=== PATIENT | female | born 1955 | race Caucasian/White ===

== ENCOUNTER 2020-04-05 06:52 | Inpatient (IN) ==
--- NOTE | 2020-04-05 07:16 | Emergency Department Note ---
Weakness HPI General Chief complaint: Weakness Stated complaint: weakness Time Seen by Provider: 04/05/20 07:07 Source: patient, family and RN notes reviewed Mode of arrival: ambulatory Limitations: no limitations History of Present Illness HPI Narrative: Narrative: This patient has a history of end-stage liver cancer with a ascites it has been recurrent. She had a paracentesis last week and felt little better after that. However she is reaccumulated and its impairing breathing slightly. She has some abdominal discomfort. 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 She has had generalized weakness today. She does take lactulose. Complaint: generalized weakness Onset (ago): day(s) Duration: constant Location: generalized Migration: none Severity: moderate Context: recent illness and history of similar Related Data Home Medications Medication Instructions Recorded Confirmed cholecalciferol (vitamin D3) 1,000 unit PO DAILY 11/20/17 03/22/20 docusate sodium 100 mg capsule 100 mg PO QDAY 01/26/20 03/29/20 rifaximin 550 mg tablet 550 mg PO BID 01/26/20 04/05/20 lactulose 10 gram/15 mL oral 45 ml PO TID ml 03/22/20 03/29/20 solution Previous Rx's Medication Instructions Recorded ketoconazole 2 % topical cream 1 applic TOPICAL BID #60 g 04/15/19 albuterol sulfate 90 mcg/actuation 2 puff INHALATION Q4-6HP PRN #6.7 g 07/29/19 aerosol inhaler bumetanide 2 mg tablet 2 mg PO BID #180 tab 12/23/19 tramadol 50 mg tablet 50 mg PO QID PRN #120 tab 12/29/19 omeprazole 20 mg capsule,delayed 20 mg PO QDAY #90 cap 01/08/20 release nystatin 100,000 unit/mL oral 5 ml BUCCAL BID #500 ml 01/22/20 suspension metolazone 2.5 mg tablet 2.5 mg PO . and Sunday #20 tab 02/10/20 cyclobenzaprine 10 mg tablet 20 mg PO HS #60 tab 03/01/20 spironolactone 100 mg tablet 100 mg PO BID #60 tab 03/31/20 Allergies Allergy/AdvReac Type Severity Reaction Status Date / Time codeine Allergy Unknown Verified 04/05/20 06:58 Review of Systems ROS ROS Narrative: Narrative: All systems ED: reviewed and negative except as stated. 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) Personal history of malignant hepatoma (Chronic) Disorder of fluid or electrolyte (Chronic) Electrolyte and fluid disorder (Chronic) Acute prerenal azotemia (Acute) Hepatic encephalopathy (Chronic) Lower extremity edema (Chronic) Hepatocellular carcinoma (Chronic) Family history of colon cancer in father (Chronic) RLS (restless legs syndrome) (Chronic) Wellness examination (Chronic) Neuropathy (Chronic) Hay fever (Chronic) History of left hip replacement (Chronic ~02/23/15) History of blood transfusion (Chronic) History of tobacco use (Chronic) GERD (gastroesophageal reflux disease) (Chronic) Hepatitis C, chronic (Chronic) Lymphedema (Chronic) 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) Leg length discrepancy (Chronic) Paresthesia of bilateral legs (Chronic) Unequal limb length (acquired), left femur (Chronic) Mass of left foot (Chronic) Seborrheic keratosis (Chronic) Hip pain (Chronic) Osteoarthritis (Chronic) Tricuspid valve regurgitation (Chronic) Cirrhosis (Chronic) Menopausal syndrome (Chronic) Asthma (Chronic) Medical History (Updated 04/05/20 @ 09:03 by Rafa Rogel MD) Abdominal pain (Resolved) With elevated liver enzymes Abnormal screening mammogram (Resolved) 01/2015, resultant ultrasound revealed benign findings Anemia (Resolved) Asthma (Chronic) Bilateral lower extremity edema (Resolved) Burning pain (Resolved) Calf cramp (Resolved) nocturnal Callus of foot (Resolved) Feet, bilateral Cellulitis (Resolved) Cirrhosis (Chronic) Congestive heart failure (Resolved) Disorder of fluid or electrolyte (Chronic) Doing well Cirrhotic physiology Dual diuretics and cirrhosis makes hyponatremia a possibility Use aldactone to keep K ~4.0 mEq/L to blunt NH3 production Dull pain (Resolved) Edema (Resolved) Electrolyte and fluid disorder (Chronic) Cirrhotic physiology and diuretics Fracture of left hip (Resolved) 01/2015 Gastric ulcer (Resolved) GERD (gastroesophageal reflux disease) (Chronic) Groin pain (Resolved) Hay fever (Chronic) Heartburn (Resolved) 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 Hepatocellular carcinoma (Chronic) Hip pain (Chronic) History of blood transfusion (Chronic) 04/2015 History of drug abuse in remission (Resolved) History of echocardiogram (Resolved 04/14/15) 04/2015 History of hepatitis C (Resolved) History of hepatitis C (Resolved) History of tobacco use (Chronic) Leg length discrepancy (Chronic) Lower extremity edema (Resolved) Lower extremity edema (Chronic) Lymphedema (Chronic) Medicare annual wellness visit, initial (Acute) Menopausal syndrome (Chronic) 10/24/2012 Muscle cramps (Resolved) Muscle weakness (Resolved) Numbness (Resolved) Osteopenia (Chronic) DEXA scan 11/2015 Paresthesia of bilateral legs (Chronic) Peripheral edema (Resolved) Personal history of malignant hepatoma (Chronic) Appears well treated by IR catheter directed ablation x 2 Postmenopausal bleeding (Resolved) 10/24/2012; on Combipatch Pulmonary hypertension (Resolved) Rhinitis, allergic (Resolved) RLS (restless legs syndrome) (Chronic) Seborrheic keratosis (Chronic) Skin fissure (Resolved) Tricuspid valve regurgitation (Chronic) Unequal limb length (acquired), left femur (Chronic) Upper GI bleeding (Resolved) bleeding was from friable stricture at GE jxn. 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 No family history of endocrine disease No problems noted. No family history of neoplasm No problems noted. Social History Smoking Status: Former smoker Alcohol Intake Frequency: former alcohol drinker Substance Use: does not use and former substance user Exam Narrative Narrative: Narrative: General Limitations: no limitations Head Head: Present atraumatic and normocephalic Eye Eye: Present normal appearance, EOMI and scleral icterus; Absent conjunctival injection ENT ENT: Present normal exam, normal oropharynx and mucous membranes moist Neck Neck: Present normal inspection and full ROM Chest Chest: Present normal inspection and symmetric chest wall rise Respiratory Respiratory: Present normal lung sounds bilaterally Cardiovascular Cardiovascular: Present regular rate, normal rhythm and normal heart sounds Adbominal Abdominal: Present soft, distention and tenderness; Absent guarding, rebound and rigidity Expanded Abdominal Abdominal Tenderness: Present diffuse and mild Extremities Extremities: Present normal inspection and full ROM; Absent pedal edema and pretibial edema Neurological Neurological: Present alert Psychiatric Psychiatric: Present normal affect Skin Skin: Present warm (WNL) and dry; Absent diaphoresis Course Vital Signs Vital signs: Vital Signs Temperature 98.4 F 04/05/20 06:52 Pulse Rate 111 H 04/05/20 06:52 Respiratory Rate 18 04/05/20 06:52 Pulse Oximetry (%) 96 04/05/20 06:52 Temperature 98.4 F 04/05/20 07:13 Pulse Rate 93 H 04/05/20 08:31 Respiratory Rate 11 L 04/05/20 08:31 Blood Pressure 123/69 04/05/20 08:31 Pulse Oximetry (%) 97 04/05/20 08:31 [facility] MDM Narrative Medical decision making narrative: Narrative: Despite the marked rise in the ammonia level her mental status is about the same as a week ago. She has not had a bowel movement in several days and the hospitalist recommended giving her some extra doses of lactulose today. We will give her 30 g now. Still waiting on some lab work and body fluid analysis to come back so final disposition per Dr. Rosario. Lab Data Lab results narrative: Lab work is is about the same as a week ago except that the ammonia has gone from 85 to 249. Result diagrams: 04/05/20 07:38 04/05/20 07:38 Labs: Lab Results 04/05/20 04/05/20 04/05/20 Range/Units 07:38 07:38 07:38 WBC 9.7 (4.5-11.0) K/mcL RBC 3.99 L (4.00-5.20) M/mcL Hgb 11.8 L (12.0-15.0) g/dL Hct 35.8 L (36.0-48.0) % MCV 89.7 (80.0-100.0) fL MCH 29.6 (26.0-34.0) pg MCHC 33.0 (31.0-36.0) g/dL RDW 15.9 H (11.5-14.5) % Plt Count 85 L (140-440) K/mcL MPV 12.6 H (7.4-10.4) fL Neut % (Auto) 79.8 H (38.0-78.0) % Lymph % (Auto) 5.7 L (15.0-49.0) % Tift % (Auto) 12.3 H (1.0-12.0) % Eos % (Auto) 1.7 (0.0-7.0) % Baso % (Auto) 0.5 (0.0-2.0) % Lymph # (Auto) 0.55 L (1.50-4.80) K/mcL Tift # (Auto) 1.19 H (0.10-0.90) K/mcL Eos # (Auto) 0.16 (0.00-0.70) K/mcL Baso # (Auto) 0.05 (0.00-0.20) K/mcL Absolute Neutrophils 7.73 (1.80-8.00) K/mcL PT 17.2 H (11.9-14.5) sec INR 1.4 H (0.9-1.1) Sodium 131 L (133-145) mmol/L Potassium 4.3 (3.3-5.1) mmol/L Chloride 92 L (96-108) mmol/L Carbon Dioxide 28 (22-30) mmol/L Anion Gap 11.0 (8.0-16.0) BUN 30 H (8-23) mg/dL Creatinine 1.8 H (0.6-1.1) mg/dL GFR Calculation 29 Glucose 78 (70-105) mg/dL Calcium 9.5 (8.6-10.4) mg/dL Total Bilirubin 3.7 H (0.1-1.0) mg/dL AST 92 H (<32) U/L ALT 43 H (<40) U/L Alkaline Phosphatase 345 H (39-117) U/L Ammonia (11-51) umol/L Total Protein 6.4 (5.9-8.4) gm/dL Albumin 3.1 L (3.2-5.2) gm/dL Globulin 3.3 (2.2-3.7) gm/dL Albumin/Globulin Ratio 0.9 L (1.0-2.3) 04/05/20 Range/Units 07:38 WBC (4.5-11.0) K/mcL RBC (4.00-5.20) M/mcL Hgb (12.0-15.0) g/dL Hct (36.0-48.0) % MCV (80.0-100.0) fL MCH (26.0-34.0) pg MCHC (31.0-36.0) g/dL RDW (11.5-14.5) % Plt Count (140-440) K/mcL MPV (7.4-10.4) fL Neut % (Auto) (38.0-78.0) % Lymph % (Auto) (15.0-49.0) % Tift % (Auto) (1.0-12.0) % Eos % (Auto) (0.0-7.0) % Baso % (Auto) (0.0-2.0) % Lymph # (Auto) (1.50-4.80) K/mcL Tift # (Auto) (0.10-0.90) K/mcL Eos # (Auto) (0.00-0.70) K/mcL Baso # (Auto) (0.00-0.20) K/mcL Absolute Neutrophils (1.80-8.00) K/mcL PT (11.9-14.5) sec INR (0.9-1.1) Sodium (133-145) mmol/L Potassium (3.3-5.1) mmol/L Chloride (96-108) mmol/L Carbon Dioxide (22-30) mmol/L Anion Gap (8.0-16.0) BUN (8-23) mg/dL Creatinine (0.6-1.1) mg/dL GFR Calculation Glucose (70-105) mg/dL Calcium (8.6-10.4) mg/dL Total Bilirubin (0.1-1.0) mg/dL AST (<32) U/L ALT (<40) U/L Alkaline Phosphatase (39-117) U/L Ammonia 249 H (11-51) umol/L Total Protein (5.9-8.4) gm/dL Albumin (3.2-5.2) gm/dL Globulin (2.2-3.7) gm/dL Albumin/Globulin Ratio (1.0-2.3) Radiology Data Radiology results reviewed: Yes I reviewed the patient's radiology results. Radiology results narrative: 4 L of clear fluid were removed by paracentesis. Discharge Plan Patient/Caregiver Discharge Instructions Pt seen by SERVICER/PA only: No Clinical Impression: Hepatic cirrhosis due to chronic hepatitis C infection, Personal history of malignant hepatoma Patient Disposition: Still a Patient Follow up with: Wendy Reid DO [Primary Care Provider] - Prescriptions: No Action ketoconazole 2 % cream 1 applic TOPICAL BID Qty: 60 RF: 0 albuterol sulfate 90 mcg/actuation HFA aerosol inhaler 2 puff INHALATION Q4-6HP PRN (Reason: Shortness Of Breath) Qty: 6.7 RF: 2 bumetanide 2 mg tablet 2 mg PO BID Qty: 180 RF: 3 tramadol 50 mg tablet 50 mg PO QID PRN (Reason: pain) Qty: 120 RF: 3 omeprazole 20 mg capsule,delayed release(DR/EC) 20 mg PO QDAY Qty: 90 RF: 0 nystatin 100,000 unit/mL suspension 5 ml BUCCAL BID Qty: 500 RF: 2 metolazone 2.5 mg tablet 2.5 mg PO . and Sunday Qty: 20 RF: 0 cyclobenzaprine 10 mg tablet 20 mg PO HS Qty: 60 RF: 1 spironolactone 100 mg tablet 100 mg PO BID Qty: 60 RF: 11 lactulose 10 gram/15 mL solution 45 ml PO TID RF: 0 Xifaxan 550 mg tablet 550 mg PO BID RF: 0 docusate sodium 100 mg capsule 100 mg PO QDAY RF: 0 cholecalciferol (vitamin D3) 1,000 UNIT capsule 1,000 unit PO DAILY RF: 0
[2020-04-05] MEDS ORDERED: ONDANSETRON 4 MG/2 ML VIAL IV ONE (07:56)
[2020-04-05 08:17] LABS: Basophils # (Auto) 0.05 K/mcL (0.00-0.20); Basophils % (Auto) 0.5 % (0.0-2.0); Eosinophils # (Auto) 0.16 K/mcL (0.00-0.70); Eosinophils % (Auto) 1.7 % (0.0-7.0); Hematocrit 35.8 % (36.0-48.0); Hemoglobin 11.8 g/dL (12.0-15.0); Lymphocytes # (Auto) 0.55 K/mcL (1.50-4.80); Lymphocytes % (Auto) 5.7 % (15.0-49.0); Mean Cell Volume 89.7 fL (80.0-100.0); Mean Platelet Volume 12.6 fL (7.4-10.4); Monocytes # (Auto) 1.19 K/mcL (0.10-0.90); Monocytes % (Auto) 12.3 % (1.0-12.0); Neutrophils % (Auto) 79.8 % (38.0-78.0); Platelet Count 85 K/mcL (140-440); RBC 3.99 M/mcL (4.00-5.20); Red Cell Distribution Width 15.9 % (11.5-14.5); WBC 9.7 K/mcL (4.5-11.0)
--- NOTE | 2020-04-05 08:30 | Ultrasound Report ---
INDICATION: ascities TECHNIQUE: Informed consent was obtained. Discussed procedure as well as potential risks and complications including risk of infection and bleeding. Ascitic fluid was localized in the right lower quadrant. Routine ChloraPrep skin cleansing. 1% lidocaine injected subcutaneously and deep. An 8 Mauritian safety centesis set was utilized. 4.0 L clear yellow fluid removed. 50 mL was removed and sent for culture and sensitivity. COMPARISON: Previous examination dated 03/29/2020 FINDINGS: 4.0 L clear yellow fluid removed IMPRESSION: Ultrasound-guided paracentesis as above Interpreted and Authenticated by: Danny Omer 04/05/20
[2020-04-05 08:40] LABS: ALT/SGPT 43 U/L (<40); AST/SGOT 92 U/L (<32); Albumin 3.1 gm/dL (3.2-5.2); Albumin/Globulin Ratio 0.9 (1.0-2.3); Alkaline Phosphatase 345 U/L (39-117); Bilirubin,Total 3.7 mg/dL (0.1-1.0); Blood Urea Nitrogen 30 mg/dL (8-23); Calcium 9.5 mg/dL (8.6-10.4); Carbon Dioxide 28 mmol/L (22-30); Chloride 92 mmol/L (96-108); Globulin 3.3 gm/dL (2.2-3.7); Glomerular Filtration Rate 29; Glucose 78 mg/dL (70-105)
[2020-04-05 08:48] LABS: INR 1.4 (0.9-1.1); Prothrombin Time 17.2 sec (11.9-14.5)
[2020-04-05] MEDS ORDERED: LACTULOSE 20 GM/30 ML ORAL.SOL PR ONE (08:51)
[2020-04-05] MEDS ORDERED: ALBUMIN HUMAN 25 GM/100 ML BAG IV ONE ×2 (10:07→10:08)
--- NOTE | 2020-04-05 10:29 | Emergency Department Note ---
HPI General Chief complaint: Weakness Stated complaint: weakness Time Seen by Provider: 04/05/20 07:07 Source: patient, family and RN notes reviewed Mode of arrival: ambulatory Limitations: no limitations History of Present Illness HPI Narrative: Narrative: See Dr. Rogel's note, I am seeing patient in assuming care after change in shift. Note the patient was brought in due to the abdominal discomfort of buildup of fluid again, confusion that was marked and worse than usual and persistent. As well as incoordination. She had a little bit of dry heaves also this morning. She appears to be unable to cooperate and knowledgeably and safely take pills. He lives in a split-level home and is the primary caregiver for her. His name is Sushil. He believes that she would want a tube and aggressive measures although after speaking about CODE STATUS and a very very poor prognosis given her underlying other medical conditions, he does not believe that she would want full resuscitation. Last bowel movement may have been few days ago although this was not inquired about in detail per Dr. Rogel's notes and I did not either. Related Data Home Medications Medication Instructions Recorded Confirmed cholecalciferol (vitamin D3) 1,000 unit PO DAILY 11/20/17 03/22/20 docusate sodium 100 mg capsule 100 mg PO QDAY 01/26/20 03/29/20 rifaximin 550 mg tablet 550 mg PO BID 01/26/20 04/05/20 lactulose 10 gram/15 mL oral 45 ml PO TID ml 03/22/20 03/29/20 solution Previous Rx's Medication Instructions Recorded ketoconazole 2 % topical cream 1 applic TOPICAL BID #60 g 04/15/19 albuterol sulfate 90 mcg/actuation 2 puff INHALATION Q4-6HP PRN #6.7 g 07/29/19 aerosol inhaler bumetanide 2 mg tablet 2 mg PO BID #180 tab 12/23/19 tramadol 50 mg tablet 50 mg PO QID PRN #120 tab 12/29/19 omeprazole 20 mg capsule,delayed 20 mg PO QDAY #90 cap 01/08/20 release nystatin 100,000 unit/mL oral 5 ml BUCCAL BID #500 ml 01/22/20 suspension metolazone 2.5 mg tablet 2.5 mg PO . and Sunday #20 tab 02/10/20 cyclobenzaprine 10 mg tablet 20 mg PO HS #60 tab 03/01/20 spironolactone 100 mg tablet 100 mg PO BID #60 tab 03/31/20 Allergies Allergy/AdvReac Type Severity Reaction Status Date / Time codeine Allergy Unknown Verified 04/05/20 06:58 Review of Systems ROS ROS Narrative: [facility]ative: [facility] N[facility] Patient History Narrative: Narrative: Medical/Surgical/Family History All Active Problems (Updated 04/05/20 @ 10:32 by Jose Rosario DO) Acute hypokalemia (Acute) Ascites (Acute) Abdominal ascites (Acute) Acute prerenal azotemia (Acute) Abdominal pain (Acute) Acute hepatic encephalopathy (Acute) History of inguinal hernia repair (Acute) History of hip replacement (Chronic) History of hernia repair (Chronic ~2011) History of colonoscopy (Chronic ~02/24/08) History of esophagogastroduodenoscopy (EGD) (Chronic) Medicare annual wellness visit, initial (Acute) 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) Personal history of malignant hepatoma (Chronic) Disorder of fluid or electrolyte (Chronic) Electrolyte and fluid disorder (Chronic) Acute prerenal azotemia (Acute) Hepatic encephalopathy (Chronic) Lower extremity edema (Chronic) Hepatocellular carcinoma (Chronic) Family history of colon cancer in father (Chronic) RLS (restless legs syndrome) (Chronic) Wellness examination (Chronic) Neuropathy (Chronic) Hay fever (Chronic) History of left hip replacement (Chronic ~02/23/15) History of blood transfusion (Chronic) History of tobacco use (Chronic) GERD (gastroesophageal reflux disease) (Chronic) Hepatitis C, chronic (Chronic) Lymphedema (Chronic) 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) Leg length discrepancy (Chronic) Paresthesia of bilateral legs (Chronic) Unequal limb length (acquired), left femur (Chronic) Mass of left foot (Chronic) Seborrheic keratosis (Chronic) Hip pain (Chronic) Osteoarthritis (Chronic) Tricuspid valve regurgitation (Chronic) Cirrhosis (Chronic) Menopausal syndrome (Chronic) Asthma (Chronic) Medical History (Updated 04/05/20 @ 10:32 by Jose Rosario DO) Abdominal pain (Resolved) With elevated liver enzymes Abnormal screening mammogram (Resolved) 01/2015, resultant ultrasound revealed benign findings Anemia (Resolved) Asthma (Chronic) Bilateral lower extremity edema (Resolved) Burning pain (Resolved) Calf cramp (Resolved) nocturnal Callus of foot (Resolved) Feet, bilateral Cellulitis (Resolved) Cirrhosis (Chronic) Congestive heart failure (Resolved) Disorder of fluid or electrolyte (Chronic) Doing well Cirrhotic physiology Dual diuretics and cirrhosis makes hyponatremia a possibility Use aldactone to keep K ~4.0 mEq/L to blunt NH3 production Dull pain (Resolved) Edema (Resolved) Electrolyte and fluid disorder (Chronic) Cirrhotic physiology and diuretics Fracture of left hip (Resolved) 01/2015 Gastric ulcer (Resolved) GERD (gastroesophageal reflux disease) (Chronic) Groin pain (Resolved) Hay fever (Chronic) Heartburn (Resolved) 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 Hepatocellular carcinoma (Chronic) Hip pain (Chronic) History of blood transfusion (Chronic) 04/2015 History of drug abuse in remission (Resolved) History of echocardiogram (Resolved 04/14/15) 04/2015 History of hepatitis C (Resolved) History of hepatitis C (Resolved) History of tobacco use (Chronic) Leg length discrepancy (Chronic) Lower extremity edema (Resolved) Lower extremity edema (Chronic) Lymphedema (Chronic) Medicare annual wellness visit, initial (Acute) Menopausal syndrome (Chronic) 10/24/2012 Muscle cramps (Resolved) Muscle weakness (Resolved) Numbness (Resolved) Osteopenia (Chronic) DEXA scan 11/2015 Paresthesia of bilateral legs (Chronic) Peripheral edema (Resolved) Personal history of malignant hepatoma (Chronic) Appears well treated by IR catheter directed ablation x 2 Postmenopausal bleeding (Resolved) 10/24/2012; on Combipatch Pulmonary hypertension (Resolved) Rhinitis, allergic (Resolved) RLS (restless legs syndrome) (Chronic) Seborrheic keratosis (Chronic) Skin fissure (Resolved) Tricuspid valve regurgitation (Chronic) Unequal limb length (acquired), left femur (Chronic) Upper GI bleeding (Resolved) bleeding was from friable stricture at GE jxn. 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) Visit for screening mammogram (Inactive) 10/24/2012 Wellness examination (Chronic) 02/16/17 Surgical History (Updated 02/06/20 @ 09:05 by Fortino Claros MD) History of colonoscopy (Chronic ~02/24/08) History of esophagogastroduodenoscopy (EGD) (Chronic) 02/24/08 & 01/29/2020 History of hernia repair (Chronic ~2011) History of hip replacement (Chronic) History of inguinal hernia repair (Acute) 10/24/2012 History of left hip replacement (Chronic ~02/23/15) Hx of total hip arthroplasty (Resolved ~01/2015) Social History Smoking Status: Former smoker Alcohol Intake Frequency: former alcohol drinker Substance Use: does not use and former substance user Exam Narrative Narrative: Narrative: General: Patient resting peacefully but easily and quickly opens her eyes when spoken to. Neuro: Speech is limited but understandable and uses words but are inappropriate for the question and circumstances. She does not seem to be able to comprehend or answer questions. General Limitations: no limitations Course Vital Signs Vital signs: Vital Signs Temperature 98.4 F 04/05/20 06:52 Pulse Rate 111 H 04/05/20 06:52 Respiratory Rate 18 04/05/20 06:52 Pulse Oximetry (%) 96 04/05/20 06:52 Temperature 98.4 F 04/05/20 07:13 Pulse Rate 104 H 04/05/20 09:35 Respiratory Rate 12 04/05/20 09:35 Blood Pressure 119/71 04/05/20 09:31 Pulse Oximetry (%) 97 04/05/20 09:35 MDM MDM Narrative Medical decision making narrative: Narrative: 9:59 AM - I spoke with Dr. Hernandez, tie carrier, [place], who reports that she continues to be actively listed on the transplant list. Was seen by a colleague February 17 with a meld score of 15. He thinks and feels that she should be aggressively treated with hospitalization to help correct her underlying prerenal azotemia with a creatinine of 1.8, holding diuretics, giving albumin 50 g, and pushing the lactulose. Even putting a tube down to administer the lactulose seems reasonable in his mind. Also to verify the results of her peritoneal fluid (make sure that she does not have bacterial peritonitis) and a urinalysis. 10:20 AM - spoke with hospitalist, Dr. Tanner Rodarte, who is agreeable with the above situation and plan. Lab Data Result diagrams: 04/05/20 07:38 04/05/20 07:38 Labs: Lab Results 04/05/20 04/05/20 04/05/20 Range/Units 07:38 07:38 07:38 WBC 9.7 (4.5-11.0) K/mcL RBC 3.99 L (4.00-5.20) M/mcL Hgb 11.8 L (12.0-15.0) g/dL Hct 35.8 L (36.0-48.0) % MCV 89.7 (80.0-100.0) fL MCH 29.6 (26.0-34.0) pg MCHC 33.0 (31.0-36.0) g/dL RDW 15.9 H (11.5-14.5) % Plt Count 85 L (140-440) K/mcL MPV 12.6 H (7.4-10.4) fL Neut % (Auto) 79.8 H (38.0-78.0) % Lymph % (Auto) 5.7 L (15.0-49.0) % Davie % (Auto) 12.3 H (1.0-12.0) % Eos % (Auto) 1.7 (0.0-7.0) % Baso % (Auto) 0.5 (0.0-2.0) % Lymph # (Auto) 0.55 L (1.50-4.80) K/mcL Davie # (Auto) 1.19 H (0.10-0.90) K/mcL Eos # (Auto) 0.16 (0.00-0.70) K/mcL Baso # (Auto) 0.05 (0.00-0.20) K/mcL Absolute Neutrophils 7.73 (1.80-8.00) K/mcL PT 17.2 H (11.9-14.5) sec INR 1.4 H (0.9-1.1) Sodium 131 L (133-145) mmol/L Potassium 4.3 (3.3-5.1) mmol/L Chloride 92 L (96-108) mmol/L Carbon Dioxide 28 (22-30) mmol/L Anion Gap 11.0 (8.0-16.0) BUN 30 H (8-23) mg/dL Creatinine 1.8 H (0.6-1.1) mg/dL GFR Calculation 29 Glucose 78 (70-105) mg/dL Calcium 9.5 (8.6-10.4) mg/dL Total Bilirubin 3.7 H (0.1-1.0) mg/dL AST 92 H (<32) U/L ALT 43 H (<40) U/L Alkaline Phosphatase 345 H (39-117) U/L Ammonia (11-51) umol/L Total Protein 6.4 (5.9-8.4) gm/dL Albumin 3.1 L (3.2-5.2) gm/dL Globulin 3.3 (2.2-3.7) gm/dL Albumin/Globulin Ratio 0.9 L (1.0-2.3) 04/05/20 Range/Units 07:38 WBC (4.5-11.0) K/mcL RBC (4.00-5.20) M/mcL Hgb (12.0-15.0) g/dL Hct (36.0-48.0) % MCV (80.0-100.0) fL MCH (26.0-34.0) pg MCHC (31.0-36.0) g/dL RDW (11.5-14.5) % Plt Count (140-440) K/mcL MPV (7.4-10.4) fL Neut % (Auto) (38.0-78.0) % Lymph % (Auto) (15.0-49.0) % Davie % (Auto) (1.0-12.0) % Eos % (Auto) (0.0-7.0) % Baso % (Auto) (0.0-2.0) % Lymph # (Auto) (1.50-4.80) K/mcL Davie # (Auto) (0.10-0.90) K/mcL Eos # (Auto) (0.00-0.70) K/mcL Baso # (Auto) (0.00-0.20) K/mcL Absolute Neutrophils (1.80-8.00) K/mcL PT (11.9-14.5) sec INR (0.9-1.1) Sodium (133-145) mmol/L Potassium (3.3-5.1) mmol/L Chloride (96-108) mmol/L Carbon Dioxide (22-30) mmol/L Anion Gap (8.0-16.0) BUN (8-23) mg/dL Creatinine (0.6-1.1) mg/dL GFR Calculation Glucose (70-105) mg/dL Calcium (8.6-10.4) mg/dL Total Bilirubin (0.1-1.0) mg/dL AST (<32) U/L ALT (<40) U/L Alkaline Phosphatase (39-117) U/L Ammonia 249 H (11-51) umol/L Total Protein (5.9-8.4) gm/dL Albumin (3.2-5.2) gm/dL Globulin (2.2-3.7) gm/dL Albumin/Globulin Ratio (1.0-2.3) Discharge Plan Patient/Caregiver Discharge Instructions Pt seen by MERCHANDISING EXECUTION MANAGER/PA only: No Clinical Impression: Hepatic cirrhosis due to chronic hepatitis C infection, Personal history of malignant hepatoma, Abdominal ascites, Acute prerenal azotemia, Abdominal pain, Acute hepatic encephalopathy Patient Disposition: Xfer As Inpt ([facility]) Follow up with: Wendy Reid DO [Primary Care Provider] - Prescriptions: No Action ketoconazole 2 % cream 1 applic TOPICAL BID Qty: 60 RF: 0 albuterol sulfate 90 mcg/actuation HFA aerosol inhaler 2 puff INHALATION Q4-6HP PRN (Reason: Shortness Of Breath) Qty: 6.7 RF: 2 bumetanide 2 mg tablet 2 mg PO BID Qty: 180 RF: 3 tramadol 50 mg tablet 50 mg PO QID PRN (Reason: pain) Qty: 120 RF: 3 omeprazole 20 mg capsule,delayed release(DR/EC) 20 mg PO QDAY Qty: 90 RF: 0 nystatin 100,000 unit/mL suspension 5 ml BUCCAL BID Qty: 500 RF: 2 metolazone 2.5 mg tablet 2.5 mg PO . and Sunday Qty: 20 RF: 0 cyclobenzaprine 10 mg tablet 20 mg PO HS Qty: 60 RF: 1 spironolactone 100 mg tablet 100 mg PO BID Qty: 60 RF: 11 lactulose 10 gram/15 mL solution 45 ml PO TID RF: 0 Xifaxan 550 mg tablet 550 mg PO BID RF: 0 docusate sodium 100 mg capsule 100 mg PO QDAY RF: 0 cholecalciferol (vitamin D3) 1,000 UNIT capsule 1,000 unit PO DAILY RF: 0
[2020-04-05 10:51] LABS: Appearance, Body Fluid Clear; Color, Body Fluid P. Yellow; Mesothelial,Body Fluid 4 %; Nucleated Cells,Body Fld 96 /cumm; Total Cell Count Body Fld 100
--- NOTE | 2020-04-05 10:59 | Internal Med History&Physical ---
HPI History of Present Illness Patient information: Note initiated : 04/05/20 at 10:45 am Service Date, if different from initiated Date: [] Patient: Terese Copeland a 64 y/o F admitted on for Weakness. Chief Complaint: [] History of present illness: Ms. Copeland is a 64 year old F Presents the ED with her for increasing confusion weakness some abdominal discomfort. History is obtained from the given patient's altered mental state. Per the for the past couple days she become weaker and this morning she seemed really confused she had an abnormal gait, weak. He says she typically has been pretty compliant with her lactulose with exception of yesterday she had a hard time taking it and threw up a dose. Per the she has not had abdominal least a couple days. She is seen in the ER and her creatinine is found to be 1.8 BUN of 30. Ammonia was 250 and was 80-week ago. She had a paracentesis with 4 L out which was described as clear yellow. She is on the transplant list at [facility]. And she sees a experimental physicist at [place] whom Dr. Mata talked to and amended hydration with holding diuretics as well as albumin and lactulose. 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) Personal history of malignant hepatoma (Chronic) Disorder of fluid or electrolyte (Chronic) Electrolyte and fluid disorder (Chronic) Acute prerenal azotemia (Acute) Hepatic encephalopathy (Chronic) Lower extremity edema (Chronic) Hepatocellular carcinoma (Chronic) Family history of colon cancer in father (Chronic) RLS (restless legs syndrome) (Chronic) Wellness examination (Chronic) Neuropathy (Chronic) Hay fever (Chronic) History of left hip replacement (Chronic ~02/23/15) History of blood transfusion (Chronic) History of tobacco use (Chronic) GERD (gastroesophageal reflux disease) (Chronic) Hepatitis C, chronic (Chronic) Lymphedema (Chronic) 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) Leg length discrepancy (Chronic) Paresthesia of bilateral legs (Chronic) Unequal limb length (acquired), left femur (Chronic) Mass of left foot (Chronic) Seborrheic keratosis (Chronic) Hip pain (Chronic) Osteoarthritis (Chronic) Tricuspid valve regurgitation (Chronic) Cirrhosis (Chronic) Menopausal syndrome (Chronic) Asthma (Chronic) Medical History (Updated 04/05/20 @ 10:32 by Jose Rosario DO) Abdominal pain (Resolved) With elevated liver enzymes Abnormal screening mammogram (Resolved) 01/2015, resultant ultrasound revealed benign findings Anemia (Resolved) Asthma (Chronic) Bilateral lower extremity edema (Resolved) Burning pain (Resolved) Calf cramp (Resolved) nocturnal Callus of foot (Resolved) Feet, bilateral Cellulitis (Resolved) Cirrhosis (Chronic) Congestive heart failure (Resolved) Disorder of fluid or electrolyte (Chronic) Doing well Cirrhotic physiology Dual diuretics and cirrhosis makes hyponatremia a possibility Use aldactone to keep K ~4.0 mEq/L to blunt NH3 production Dull pain (Resolved) Edema (Resolved) Electrolyte and fluid disorder (Chronic) Cirrhotic physiology and diuretics Fracture of left hip (Resolved) 01/2015 Gastric ulcer (Resolved) GERD (gastroesophageal reflux disease) (Chronic) Groin pain (Resolved) Hay fever (Chronic) Heartburn (Resolved) 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 Hepatocellular carcinoma (Chronic) Hip pain (Chronic) History of blood transfusion (Chronic) 04/2015 History of drug abuse in remission (Resolved) History of echocardiogram (Resolved 04/14/15) 04/2015 History of hepatitis C (Resolved) History of hepatitis C (Resolved) History of tobacco use (Chronic) Leg length discrepancy (Chronic) Lower extremity edema (Resolved) Lower extremity edema (Chronic) Lymphedema (Chronic) Medicare annual wellness visit, initial (Acute) Menopausal syndrome (Chronic) 10/24/2012 Muscle cramps (Resolved) Muscle weakness (Resolved) Numbness (Resolved) Osteopenia (Chronic) DEXA scan 11/2015 Paresthesia of bilateral legs (Chronic) Peripheral edema (Resolved) Personal history of malignant hepatoma (Chronic) Appears well treated by IR catheter directed ablation x 2 Postmenopausal bleeding (Resolved) 10/24/2012; on Combipatch Pulmonary hypertension (Resolved) Rhinitis, allergic (Resolved) RLS (restless legs syndrome) (Chronic) Seborrheic keratosis (Chronic) Skin fissure (Resolved) Tricuspid valve regurgitation (Chronic) Unequal limb length (acquired), left femur (Chronic) Upper GI bleeding (Resolved) bleeding was from friable stricture at GE jxn. 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 No family history of endocrine disease No problems noted. No family history of neoplasm No problems noted. 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 [employer] physical activity: none smoking status: Former smoker alcohol intake frequency: former alcohol drinker substance use type: does not use and former substance user additional history: Family history Father had liver disease Social history: Patient quit smoking 30 years ago quit drinking alcohol 6 years ago lives at home with her MEDS/ALLERGIES Home Medications and Allergies Home Medications Medication Instructions Recorded Confirmed Type cholecalciferol (vitamin D3) 1,000 unit PO DAILY 11/20/17 03/22/20 History ketoconazole 2 % topical cream 1 applic TOPICAL BID #60 g 04/15/19 03/22/20 Rx albuterol sulfate 90 mcg/actuation 2 puff INHALATION Q4-6HP PRN #6.7 g 07/29/19 03/29/20 Rx aerosol inhaler bumetanide 2 mg tablet 2 mg PO BID #180 tab 12/23/19 04/05/20 Rx tramadol 50 mg tablet 50 mg PO QID PRN #120 tab 12/29/19 04/05/20 Rx omeprazole 20 mg capsule,delayed 20 mg PO QDAY #90 cap 01/08/20 04/05/20 Rx release nystatin 100,000 unit/mL oral 5 ml BUCCAL BID #500 ml 01/22/20 03/29/20 Rx suspension docusate sodium 100 mg capsule 100 mg PO QDAY 01/26/20 03/29/20 History rifaximin 550 mg tablet 550 mg PO BID 01/26/20 04/05/20 History metolazone 2.5 mg tablet 2.5 mg PO . and Sunday #20 tab 02/10/20 03/29/20 Rx cyclobenzaprine 10 mg tablet 20 mg PO HS #60 tab 03/01/20 04/05/20 Rx lactulose 10 gram/15 mL oral 45 ml PO TID ml 03/22/20 03/29/20 History solution spironolactone 100 mg tablet 100 mg PO BID #60 tab 03/31/20 04/05/20 Rx Allergies Allergy/AdvReac Type Severity Reaction Status Date / Time codeine Allergy Unknown Verified 04/05/20 06:58 EXAM Constitutional Vitals: Temp Pulse Resp BP Pulse Ox 98.4 F 104 H 12 119/71 97 04/05/20 07:13 04/05/20 09:35 04/05/20 09:35 04/05/20 09:31 04/05/20 09:35 Exam: General: Stuporous, No acute Distress Eyes/N/T: PERRL, Head/Neck: neck supple, normocephalic atraumatic CV: RRR, No murmurs, normal s1/s2 Pulm: Clear b/l, no wheezing/rhonchi/rales Abd: soft, nontender, +BS x4 Ext: no clubbing/cyanosis/edema Neuro: Stuporous, does not follow commands. moves all extremities tenuously, able to get a thorough neuro exam given altered mental status skin: warm/dry DATA Data Completed and Pending Labs: Labs from last 24 hours 04/05/20 04/05/20 04/05/20 08:00 07:38 07:38 WBC RBC Hgb Hct MCV MCH MCHC RDW Plt Count MPV Neut % (Auto) Lymph % (Auto) Smyth % (Auto) Eos % (Auto) Baso % (Auto) Lymph # (Auto) Smyth # (Auto) Eos # (Auto) Baso # (Auto) Absolute Neutrophils PT INR Sodium 131 L Potassium 4.3 Chloride 92 L Carbon Dioxide 28 Anion Gap 11.0 BUN 30 H Creatinine 1.8 H GFR Calculation 29 Glucose 78 Calcium 9.5 Total Bilirubin 3.7 H AST 92 H ALT 43 H Alkaline Phosphatase 345 H Ammonia 249 H Total Protein 6.4 Albumin 3.1 L Globulin 3.3 Albumin/Globulin Ratio 0.9 L Fluid Source Pending Fluid Color Pending Fluid Appearance Pending Fluid RBC Pending Fluid Nucleated Cells Pending 04/05/20 04/05/20 07:38 07:38 WBC 9.7 RBC 3.99 L Hgb 11.8 L Hct 35.8 L MCV 89.7 MCH 29.6 MCHC 33.0 RDW 15.9 H Plt Count 85 L MPV 12.6 H Neut % (Auto) 79.8 H Lymph % (Auto) 5.7 L Smyth % (Auto) 12.3 H Eos % (Auto) 1.7 Baso % (Auto) 0.5 Lymph # (Auto) 0.55 L Smyth # (Auto) 1.19 H Eos # (Auto) 0.16 Baso # (Auto) 0.05 Absolute Neutrophils 7.73 PT 17.2 H INR 1.4 H Sodium Potassium Chloride Carbon Dioxide Anion Gap BUN Creatinine GFR Calculation Glucose Calcium Total Bilirubin AST ALT Alkaline Phosphatase Ammonia Total Protein Albumin Globulin Albumin/Globulin Ratio Fluid Source Fluid Color Fluid Appearance Fluid RBC Fluid Nucleated Cells A/P Narrative A/P Narrative: A: *Hepatic encephalopathy grade III: *DAVON on CKD II: *Hyponatremia, mild: *Cirrhosis 2/2 Hep C/HCC/etoh: with sequelae including Esophageal varices/thrombocytopenia/Ascites -on transplant list at [facility] and follows with experimental physicist Dr. Hernandez @[facility] -Paracentesis (04/05) 4L's *Hyponatremia: *GERD: P: -case discussed with her experimental physicist Dr. Hernandez who recommended hydration/hold diuretics/albumin/lactulose -Rifaximin, lactulose enema until able to take PO -gentle hydration, hold diuretics (bumex/aldactone/metolazone) -f/u renal fxn, monitor I/o's -Albumin -check ua - -pt/ot -ppx: Lovenox 30(unless PLT<50k)/home PPI DNR Time Spent With Patient Time: Total time spent is greater than 50% in coordination of care (as documented) at patient's floor/unit and/or counseling patient:
[2020-04-05] MEDS ORDERED: DEXTROSE 5%-NS 1,000 ML IV SCH (12:36)
[2020-04-05] MEDS ORDERED: POTASSIUM CHLORIDE 40 MEQ in DEXTROSE 5% IN WATER 500 ML IV PRN (12:36)
[2020-04-05] MEDS ORDERED: SENNOSIDES 1 TABLET PO PRN (12:36)
[2020-04-05] MEDS ORDERED: POTASSIUM CHLORIDE 20 MEQ TABLET PO PRN ×2 (12:36)
[2020-04-05] MEDS ORDERED: MAGNESIUM SULFATE 2 GM/50 ML BAG IV PRN (12:36)
[2020-04-05] MEDS ORDERED: ONDANSETRON 4 MG/2 ML VIAL IV PRN (12:36)
[2020-04-05 13:22] LABS: Appearance,Urine CLEAR (Clear); Bilirubin,Urine Negative (Negative); Color,Urine AMBER; Culture Indicated,Urine No; Glucose,Urine (UA) Negative (Negative); Ketones,Urine Negative (Negative); Leukocyte Esterase,Urine Negative /ug (Negative); Mucus,Urine FEW /hpf; Nitrate,Urine Negative (Negative); Protein,Urine Negative (Negative); Specific Gravity,Urine 1.015 (1.000-1.035); Urine Blood 0.03 mg/dL (Negative); Urine Hyaline Cast 8 /lph (0-2); Urine RBC 1 /hpf (0-1); Urine Squamous Epithelial Cell 2 /hpf (0-4); Urine WBC 0 /hpf (0-4)
[2020-04-05] MEDS: 0.9 % SODIUM CHLORIDE 10 ML SYRINGE IV SCH ×3 (13:26→22:13)
[2020-04-05] MEDS: LACTULOSE 20 GM/30 ML ORAL.SOL PR SCH ×2 (14:03→16:49)
--- NOTE | 2020-04-05 19:28 | XRay Report ---
INDICATION: NG placement TECHNIQUE: Supine abdomen. COMPARISON: None FINDINGS:Esophagogastric tube in the proximal stomach. Sidehole is at approximately the level of the diaphragm. Bowel gas pattern is unremarkable. There are probable endovascular occlusion coils in the right upper quadrant. IMPRESSION: Esophagogastric tube in the proximal stomach as above Interpreted and Authenticated by: Danny Omer 04/05/20
[2020-04-05] MEDS: CYCLOBENZAPRINE 10 MG TABLET PO SCH (19:48)
[2020-04-05] MEDS: traMADol 50 MG TABLET PO PRN (19:49)
[2020-04-05] MEDS: DOCUSATE SODIUM 100 MG CAPSULE PO SCH (19:49)
[2020-04-05] MEDS: RIFAXIMIN 550 MG TABLET PO SCH (19:49)
[2020-04-06] MEDS: 0.9 % SODIUM CHLORIDE 10 ML SYRINGE IV SCH ×3 (05:18→20:09)
[2020-04-06 06:51] LABS: Basophils # (Auto) 0.03 K/mcL (0.00-0.20); Basophils % (Auto) 0.4 % (0.0-2.0); Eosinophils # (Auto) 0.13 K/mcL (0.00-0.70); Eosinophils % (Auto) 1.9 % (0.0-7.0); Hematocrit 29.8 % (36.0-48.0); Hemoglobin 9.8 g/dL (12.0-15.0); Lymphocytes # (Auto) 0.55 K/mcL (1.50-4.80); Lymphocytes % (Auto) 8.2 % (15.0-49.0); Mean Cell Volume 89.2 fL (80.0-100.0); Mean Corpuscular HGB Conc 32.9 g/dL (31.0-36.0); Mean Platelet Volume 12.1 fL (7.4-10.4); Monocytes # (Auto) 0.86 K/mcL (0.10-0.90); Monocytes % (Auto) 12.8 % (1.0-12.0); Neutrophils % (Auto) 76.7 % (38.0-78.0); Platelet Count 63 K/mcL (140-440); RBC 3.34 M/mcL (4.00-5.20); Red Cell Distribution Width 16.2 % (11.5-14.5); WBC 6.7 K/mcL (4.5-11.0)
[2020-04-06] MEDS: OMEPRAZOLE 20 MG CAPSULE PO SCH (07:15)
[2020-04-06] MEDS: DOCUSATE SODIUM 100 MG CAPSULE PO SCH ×2 (07:15→20:08)
--- NOTE | 2020-04-06 07:31 | Internal Med Progress Note ---
SUBJECTIVE Subjective Patient information: Note initiated : 04/06/20 at 7:27 am Service Date, if different from initiated Date: [] Patient: Terese Copeland a 64 y/o F admitted on 04/05/20 for Weakness. Chief Complaint: [] Interval history: History of present illness: Ms. Copeland is a 64 year old F Presents the ED with her for increasing confusion weakness some abdominal discomfort. History is obtained from the given patient's altered mental state. Per the for the past couple days she become weaker and this morning she se emed really confused she had an abnormal gait, weak. He says she typically has been pretty compliant with her lactulose with exception of yesterday she had a hard time taking it and threw up a dose. Per the she has not had abdominal least a couple days. She is seen in the ER and her creatinine is found to be 1.8 BUN of 30. Ammonia was 250 and was 80-week ago. She had a paracentesis with 4 L out which was described as clear yellow. She is on the transplant list at [facility]. And she sees a building contractor at [place] whom Dr. Mata talked to and amended hydration with holding diuretics as well as albumin and lactulose. 04/06 She had good bowel movements with the lactulose enemas yesterday. She is awake and alert but confused. Unable to gather review of systems given confusion Constitutional Vitals: Vital Signs Temp Pulse Resp BP Pulse Ox 98.4 F 104 H 14 109/67 97 04/06/20 04:01 04/06/20 06:01 04/06/20 06:01 04/06/20 06:01 04/06/20 06:01 Period Temp Pulse Resp BP Sys/Alvarez Pulse Ox Last 24 Hr 97.8 F-100 F 67-114 10-26 98-143/57-91 95-100 Intake and Output 04/05/20 04/06/20 04/06/20 21:59 05:59 13:59 Intake Total 1000 1000 Output Total 2400 550 Balance -1400 450 Weight 65.091 kg Intake & Output: Intake & Output 04/05/20 04/06/20 04/06/20 21:59 05:59 13:59 Intake Total 1000 1000 Output Total 2400 550 Balance -1400 450 Weight 65.091 kg Intake: IV 1000 Dextrose 5%-Ns IV Solution 1, 1000 000 ml @ 75 mls/hr IV .[id number] [facility] Rx#:[id number] Oral 0 Other 1000 Output: Gastric Drainage 2000 Rectal 2000 Urine Catheter Amount 400 550 Other: Percent of Meal Consumed NPO Urine Appearance Clear Clear Uretheral (Tanner) Clear Clear Urine Color Dark Yellow Straw Uretheral (Tanner) Bright Yellow Dark Yellow Urine Odor Normal Uretheral (Tanner) Normal Stool Size Large Large Stool Color Yellow Yellow Stool Consistency Liquid Liquid Watery Watery Loose Loose # of times incontinent of 1 1 Bowels Exam: General: awake, No acute Distress Eyes/N/T: EOMI, Head/Neck: neck supple, CV: RRR, No murmurs, Pulm: Clear b/l, no wheezing/rhonchi/rales Abd: soft, nontender, +BS x4 Ext: no clubbing/cyanosis/edema Neuro: awake, no focal deficits, moves all extremities, confusion skin: warm/dry OBJ DATA Labs CBC & Chem 7: 04/06/20 05:37 04/06/20 05:37 Labs: Abnormal Lab Results 04/06/20 04/05/20 04/05/20 05:37 12:15 07:38 RBC 3.34 L Hgb 9.8 L Hct 29.8 L RDW 16.2 H Plt Count 63 L MPV 12.1 H Neut % (Auto) Lymph % (Auto) 8.2 L [place] % (Auto) 12.8 H Lymph # (Auto) 0.55 L [place] # (Auto) PT INR Sodium Chloride BUN Creatinine Total Bilirubin AST ALT Alkaline Phosphatase Ammonia 249 H Albumin Albumin/Globulin Ratio Urine Urobilinogen 4.0 A Hyaline Casts 8 H Urine Mucus Few A 04/05/20 04/05/20 04/05/20 07:38 07:38 07:38 RBC 3.99 L Hgb 11.8 L Hct 35.8 L RDW 15.9 H Plt Count 85 L MPV 12.6 H Neut % (Auto) 79.8 H Lymph % (Auto) 5.7 L [place] % (Auto) 12.3 H Lymph # (Auto) 0.55 L [place] # (Auto) 1.19 H PT 17.2 H INR 1.4 H Sodium 131 L Chloride 92 L BUN 30 H Creatinine 1.8 H Total Bilirubin 3.7 H AST 92 H ALT 43 H Alkaline Phosphatase 345 H Ammonia Albumin 3.1 L Albumin/Globulin Ratio 0.9 L Urine Urobilinogen Hyaline Casts Urine Mucus Meds: Medications Cyclobenzaprine HCl (Flexeril) 20 mg PO HS [facility] Last Admin: 04/05/20 19:48 Dose: 20 mg Documented by: Docusate Sodium (Colace) 100 mg PO BID [facility] Last Admin: 04/06/20 07:15 Dose: Not Given Documented by: Enoxaparin Sodium (Lovenox) 30 mg SQ DAILY [facility] Albumin Human (Buminate) 50 gm in 200 mls @ 200 mls/hr IV ONCE ONE Stop: 04/06/20 11:59 Potassium Chloride 40 meq/ (Dextrose) 520 mls @ 130 mls/hr IV UD PRN PRN Reason: Potassium < 3 Magnesium Sulfate (Magnesium Sulfate) 2 gm in 50 mls @ 50 mls/hr IV UD PRN PRN Reason: Magnesium </= 1.6 Lactulose (Cephulac) 20 gm PO DAILYP PRN PRN Reason: Constipation Lactulose (Cephulac) 30 gm PO QIDP PRN PRN Reason: CONSTIPATION Omeprazole (Prilosec) 20 mg PO ACB [facility] Last Admin: 04/06/20 07:15 Dose: Not Given Documented by: Ondansetron HCl (Zofran) 4 mg IV Q4HP PRN PRN Reason: Nausea And Vomiting Last Admin: 04/05/20 18:43 Dose: 4 mg Documented by: Potassium Chloride (Kdur) 40 meq PO UD PRN PRN Reason: Potssium is 3-3.5 Potassium Chloride (Kdur) 40 meq PO UD PRN PRN Reason: Potassium < 3 Senna (Senokot) 2 tab PO DAILYP PRN PRN Reason: Constipation Sodium Chloride (Saline Flush) 10 ml IV Q8 [facility] Last Admin: 04/06/20 05:18 Dose: 10 ml Documented by: Tramadol HCl (Ultram) 50 mg PO QIDP PRN; Protocol PRN Reason: Pain Last Admin: 04/05/20 19:49 Dose: 50 mg Documented by: A/P Narrative A/P Narrative: A: *Hepatic encephalopathy grade III: mentation improving but still with confusion and impulsive at times *DAVON on CKD II: ` -Improved with IV hydration and holding diuretics *Hyponatremia, mild: Resolved *Cirrhosis 2/2 Hep C/HCC/etoh: with sequelae including Esophageal varices/thrombocytopenia/Ascites -on transplant list at [facility] and follows with building contractor Dr. Hernandez @[facility] -Paracentesis (04/05) 4L's *GERD: P: -case discussed with her building contractor Dr. Hernandez who recommended hydration/hold diuretics/albumin/lactulose -Rifaximin, lactulose enema until able to take PO then titrate to 2-3 soft BM/day -gentle hydration, hold diuretics (bumex/aldactone/metolazone) -f/u renal fxn, monitor I/o's - -pt/ot -ppx: Lovenox 30(unless PLT<50k)/home PPI DNR Time Spent With Patient Time: Total time spent is greater than 50% in coordination of care (as do cumented) at patient's floor/unit and/or counseling patient: QUALITY VTE Deep Vein Thrombosis/Pulmonary Embolism Present on Admission: No
[2020-04-06 07:33] LABS: ALT/SGPT 28 U/L (<40); AST/SGOT 59 U/L (<32); Albumin 3.2 gm/dL (3.2-5.2); Albumin/Globulin Ratio 1.3 (1.0-2.3); Alkaline Phosphatase 238 U/L (39-117); Bilirubin,Direct 1.4 mg/dL (<0.3); Bilirubin,Total 4.1 mg/dL (0.1-1.0); Blood Urea Nitrogen 27 mg/dL (8-23); Calcium 9.4 mg/dL (8.6-10.4); Carbon Dioxide 27 mmol/L (22-30); Chloride 103 mmol/L (96-108); Globulin 2.4 gm/dL (2.2-3.7); Glomerular Filtration Rate 42; Glucose 67 mg/dL (70-105); Lactate Dehydrogenase 264 U/L (135-225); Triglycerides 59 mg/dL (<150); Uric Acid 11.8 mg/dL (2.5-8.0)
[2020-04-06] MEDS ORDERED: 0.9 % SODIUM CHLORIDE 500 ML IV SCH (08:30)
[2020-04-06] MEDS: RIFAXIMIN 550 MG TABLET PO SCH ×2 (08:43→20:08)
[2020-04-06] MEDS: traMADol 50 MG TABLET PO PRN ×3 (08:43→20:08)
[2020-04-06] MEDS ORDERED: ENOXAPARIN 30 MG/0.3 ML SYRINGE SQ SCH (09:00)
[2020-04-06] MEDS ORDERED: ALBUMIN HUMAN 50 GM/200 ML BAG IV ONE (11:00)
--- NOTE | 2020-04-06 14:18 | Non-GYN Cytology Report ---
Non Player Piano Technician Cytology NG Diagnosis PERITONEAL FLUID, PARACENTESIS: -- REACTIVE MESOTHELIAL CELLS WITH ACUTE AND CHRONIC INFLAMMATION. -- NO ATYPICAL OR MALIGNANT CELLS IDENTIFIED. (RLF:sln) NG Micro Description ThinPrep, cytospin and cell block slides are examined and demonstrate reactive mesothelial cells, macrophages, lymphocytes and neutrophils. No atypical or malignant cells are identified. (RLF:sln) NG Gross Description Received 5 mL yellow clear fluid. Electronically Signed Tigist Robin MD, FCAP Electronically Signed 04/06/2020 2:17 PM
[2020-04-06] MEDS: LACTULOSE 20 GM/30 ML ORAL.SOL PO PRN (16:11)
[2020-04-06] MEDS: CYCLOBENZAPRINE 10 MG TABLET PO SCH (20:08)
[2020-04-07] MEDS: LACTULOSE 20 GM/30 ML ORAL.SOL PO PRN ×3 (04:55→15:50)
[2020-04-07] MEDS: 0.9 % SODIUM CHLORIDE 10 ML SYRINGE IV SCH ×3 (04:55→21:00)
[2020-04-07 06:40] LABS: Basophils # (Auto) 0.06 K/mcL (0.00-0.20); Eosinophils # (Auto) 0.21 K/mcL (0.00-0.70); Eosinophils % (Auto) 3.5 % (0.0-7.0); Hematocrit 27.7 % (36.0-48.0); Lymphocytes # (Auto) 0.54 K/mcL (1.50-4.80); Lymphocytes % (Auto) 9.1 % (15.0-49.0); Mean Cell Volume 89.6 fL (80.0-100.0); Mean Corpuscular HGB Conc 32.5 g/dL (31.0-36.0); Monocytes # (Auto) 0.74 K/mcL (0.10-0.90); Monocytes % (Auto) 12.4 % (1.0-12.0); Platelet Count 54 K/mcL (140-440); RBC 3.09 M/mcL (4.00-5.20); Red Cell Distribution Width 16.1 % (11.5-14.5)
[2020-04-07 07:27] LABS: ALT/SGPT 32 U/L (<40); AST/SGOT 105 U/L (<32); Albumin 3.2 gm/dL (3.2-5.2); Albumin/Globulin Ratio 1.5 (1.0-2.3); Alkaline Phosphatase 226 U/L (39-117); Bilirubin,Direct 1.5 mg/dL (<0.3); Blood Urea Nitrogen 21 mg/dL (8-23); Calcium 9.2 mg/dL (8.6-10.4); Carbon Dioxide 26 mmol/L (22-30); Chloride 99 mmol/L (96-108); Globulin 2.1 gm/dL (2.2-3.7); Glomerular Filtration Rate 52; Glucose 74 mg/dL (70-105); Lactate Dehydrogenase 265 U/L (135-225); Phosphorous 1.9 mg/dL (2.5-4.5); Triglycerides 52 mg/dL (<150); Uric Acid 9.9 mg/dL (2.5-8.0)
--- NOTE | 2020-04-07 07:58 | Internal Med Progress Note ---
SUBJECTIVE Subjective Patient information: Note initiated : 04/07/20 at 7:54 am Service Date, if different from initiated Date: [] Patient: Terese Copeland a 64 y/o F admitted on 04/05/20 for Weakness. Chief Complaint: [] Interval history: History of present illness: Ms. Copeland is a 64 year old F Presents the ED with her for increasing confusion weakness some abdominal discomfort. History is obtained from the given patient's altered mental state. Per the for the past couple days she become weaker and this morning she se emed really confused she had an abnormal gait, weak. He says she typically has been pretty compliant with her lactulose with exception of yesterday she had a hard time taking it and threw up a dose. Per the she has not had abdominal least a couple days. She is seen in the ER and her creatinine is found to be 1.8 BUN of 30. Ammonia was 250 and was 80-week ago. She had a paracentesis with 4 L out which was described as clear yellow. She is on the transplant list at [facility]. And she sees a store promoter at [place] whom Dr. Mata talked to and amended hydration with holding diuretics as well as albumin and lactulose. 04/06 She had good bowel movements with the lactulose enemas yesterday. She is awake and alert but confused. Unable to gather review of systems given confusion 04/07 Sleeping soundly this morning. No overnight issues or new complaints. Constitutional Vitals: Vital Signs Temp Pulse Resp BP Pulse Ox 99.3 F H 111 H 18 101/65 98 04/07/20 04:00 04/06/20 10:01 04/07/20 06:00 04/07/20 06:00 04/07/20 06:00 Period Temp Pulse Resp BP Sys/Alvarez Pulse Ox Last 24 Hr 97.8 F-100.4 F 97-111 12- 99-125/62-106 92-100 Intake and Output 04/06/20 04/07/20 04/07/20 21:59 05:59 13:59 Intake Total 720 480 Output Total 120 350 225 Balance 600 130 -225 Weight 65.544 kg Intake & Output: Intake & Output 04/06/20 04/07/20 04/07/20 21:59 05:59 13:59 Intake Total 720 480 Output Total 120 350 225 Balance 600 130 -225 Weight 65.544 kg Intake: Oral 720 480 Output: Urine Catheter Amount 120 350 225 Other: Meal Dinner Percent of Meal Consumed 50% Feeding Ability Assist with Tray Set Up Urine Appearance Clear Cloudy Sediment Uretheral (Tanner) Clear Clear Urine Color Dark Yellow Dark Sole Uretheral (Tanner) Light Sole Dark Sole Urine Odor Normal Exam: General: Sleeping, No acute Distress Eyes/N/T: EOMI, Head/Neck: neck supple, CV: RRR, No murmurs, Pulm: Clear b/l, no wheezing/rhonchi/rales Abd: soft, nontender, +BS x4 Ext: no clubbing/cyanosis/edema Neuro: Sleeping, no focal deficits, moves all extremities, intermittent confusion confusion skin: warm/dry OBJ DATA Labs CBC & Chem 7: 04/07/20 05:14 04/07/20 05:13 Labs: Abnormal Lab Results 04/07/20 04/07/20 04/06/20 05:14 05:13 05:37 RBC 3.09 L Hgb 9.0 L Hct 27.7 L RDW 16.1 H Plt Count 54 L MPV 12.0 H Neut % (Auto) Lymph % (Auto) 9.1 L [place] % (Auto) 12.4 H Lymph # (Auto) 0.54 L [place] # (Auto) PT INR Sodium Potassium 3.0 L Chloride BUN 27 H Creatinine 1.3 H Glucose 67 L Uric Acid 9.9 H 11.8 H Phosphorus 1.9 L Total Bilirubin 4.0 H 4.1 H Direct Bilirubin 1.5 H 1.4 H GGT 75 H 71 H AST 105 H 59 H ALT Alkaline Phosphatase 226 H 238 H Ammonia Lactate Dehydrogenase 265 H 264 H Total Protein 5.3 L 5.6 L Albumin Globulin 2.1 L Albumin/Globulin Ratio Urine Urobilinogen Hyaline Casts Urine Mucus 04/06/20 04/05/20 04/05/20 05:37 12:15 07:38 RBC 3.34 L Hgb 9.8 L Hct 29.8 L RDW 16.2 H Plt Count 63 L MPV 12.1 H Neut % (Auto) Lymph % (Auto) 8.2 L [place] % (Auto) 12.8 H Lymph # (Auto) 0.55 L [place] # (Auto) PT INR Sodium Potassium Chloride BUN Creatinine Glucose Uric Acid Phosphorus Total Bilirubin Direct Bilirubin GGT AST ALT Alkaline Phosphatase Ammonia 249 H Lactate Dehydrogenase Total Protein Albumin Globulin Albumin/Globulin Ratio Urine Urobilinogen 4.0 A Hyaline Casts 8 H Urine Mucus Few A 04/05/20 04/05/20 04/05/20 07:38 07:38 07:38 RBC 3.99 L Hgb 11.8 L Hct 35.8 L RDW 15.9 H Plt Count 85 L MPV 12.6 H Neut % (Auto) 79.8 H Lymph % (Auto) 5.7 L [place] % (Auto) 12.3 H Lymph # (Auto) 0.55 L [place] # (Auto) 1.19 H PT 17.2 H INR 1.4 H Sodium 131 L Potassium Chloride 92 L BUN 30 H Creatinine 1.8 H Glucose Uric Acid Phosphorus Total Bilirubin 3.7 H Direct Bilirubin GGT AST 92 H ALT 43 H Alkaline Phosphatase 345 H Ammonia Lactate Dehydrogenase Total Protein Albumin 3.1 L Globulin Albumin/Globulin Ratio 0.9 L Urine Urobilinogen Hyaline Casts Urine Mucus Meds: Medications Cyclobenzaprine HCl (Flexeril) 20 mg PO [facility] Last Admin: 04/06/20 20:08 Dose: 20 mg Documented by: Docusate Sodium (Colace) 100 mg PO BID [facility] Last Admin: 04/06/20 20:08 Dose: 100 mg Documented by: Enoxaparin Sodium (Lovenox) 30 mg SQ DAILY [facility] Last Admin: 04/06/20 08:43 Dose: 30 mg Documented by: Potassium Chloride 40 meq/ (Dextrose) 520 mls @ 130 mls/hr IV UD PRN PRN Reason: Potassium < 3 Magnesium Sulfate (Magnesium Sulfate) 2 gm in 50 mls @ 50 mls/hr IV UD PRN PRN Reason: Magnesium </= 1.6 Lactulose (Cephulac) 20 gm PO DAILYP PRN PRN Reason: Constipation Lactulose (Cephulac) 30 gm PO QIDP PRN PRN Reason: CONSTIPATION Last Admin: 04/07/20 04:55 Dose: 30 gm Documented by: Omeprazole (Prilosec) 20 mg PO ACB [facility] Last Admin: 04/06/20 07:15 Dose: Not Given Documented by: Ondansetron HCl (Zofran) 4 mg IV Q4HP PRN PRN Reason: Nausea And Vomiting Last Admin: 04/05/20 18:43 Dose: 4 mg Documented by: Potassium Chloride (Kdur) 40 meq PO UD PRN PRN Reason: Potssium is 3-3.5 Potassium Chloride (Kdur) 40 meq PO UD PRN PRN Reason: Potassium < 3 Senna (Senokot) 2 tab PO DAILYP PRN PRN Reason: Constipation Sodium Chloride (Saline Flush) 10 ml IV Q8 [facility] Last Admin: 04/07/20 04:55 Dose: 10 ml Documented by: Tramadol HCl (Ultram) 50 mg PO QIDP PRN; Protocol PRN Reason: Pain Last Admin: 04/06/20 20:08 Dose: 50 mg Documented by: A/P Narrative A/P Narrative: A: *Hepatic encephalopathy grade III: mentation improving but still with confusion and impulsive at times *DAVON on CKD II: -Improved with IV hydration and holding diuretics *Hyponatremia, mild: Resolved *Hypokalemia: *Cirrhosis 2/2 Hep C/HCC/etoh: with sequelae including Esophageal varices/thrombocytopenia/Ascites -on transplant list at [facility] and follows with store promoter Dr. Hernandez @[place] -Paracentesis (04/05) 4L's *GERD: *Anemia: P: -case discussed with her store promoter Dr. Hernandez who recommended hydration/hold diuretics/albumin/lactulose -Rifaximin, lactulose titrate to 2-3 soft BM/day -gentle hydration, hold diuretics (bumex/aldactone/metolazone) - -pt/ot -ppx: Lovenox (unless PLT<50k)/home PPI DNR Time Spent With Patient Time: Total time spent is greater than 50% in coordination of care (as documented) at patient's floor/unit and/or counseling patient: QUALITY VTE Deep Vein Thrombosis/Pulmonary Embolism Present on Admission: No
[2020-04-07] MEDS ORDERED: ENOXAPARIN 30 MG/0.3 ML SYRINGE SQ SCH (09:00)
[2020-04-07] MEDS ORDERED: 0.9 % SODIUM CHLORIDE 500 ML IV SCH (09:15)
[2020-04-07] MEDS: traMADol 50 MG TABLET PO PRN (09:40)
[2020-04-07] MEDS: OMEPRAZOLE 20 MG CAPSULE PO SCH (09:41)
[2020-04-07] MEDS: DOCUSATE SODIUM 100 MG CAPSULE PO SCH (09:41)
[2020-04-07] MEDS: RIFAXIMIN 550 MG TABLET PO SCH (10:02)
[2020-04-07] MEDS: PHOSPHORUS 250 MG TABLET PO SCH ×4 (10:02→22:17)
[2020-04-07] MEDS ORDERED: HALOPERIDOL LACTATE 5 MG/ML VIAL IM ONE (10:26)
[2020-04-07] MEDS: LORazepam 2 MG/ML VIAL IV PRN (10:47)
[2020-04-07] MEDS: ENOXAPARIN 40 MG/0.4 ML SYRINGE SQ SCH (10:50)
[2020-04-08] MEDS: CYCLOBENZAPRINE 10 MG TABLET PO SCH ×2 (00:05→20:24)
[2020-04-08] MEDS: DOCUSATE SODIUM 100 MG CAPSULE PO SCH ×3 (00:05→20:24)
[2020-04-08] MEDS: RIFAXIMIN 550 MG TABLET PO SCH ×3 (00:06→20:26)
[2020-04-08] MEDS: PHOSPHORUS 250 MG TABLET PO SCH (00:06)
[2020-04-08] MEDS: 0.9 % SODIUM CHLORIDE 10 ML SYRINGE IV SCH ×3 (05:41→20:27)
[2020-04-08 06:45] LABS: Basophils # (Auto) 0.05 K/mcL (0.00-0.20); Eosinophils # (Auto) 0.14 K/mcL (0.00-0.70); Eosinophils % (Auto) 2.8 % (0.0-7.0); Hematocrit 35.4 % (36.0-48.0); Hemoglobin 10.5 g/dL (12.0-15.0); Lymphocytes # (Auto) 0.45 K/mcL (1.50-4.80); Mean Cell Volume 100.9 fL (80.0-100.0); Mean Corpuscular HGB Conc 29.7 g/dL (31.0-36.0); Mean Platelet Volume 12.5 fL (7.4-10.4); Monocytes # (Auto) 0.63 K/mcL (0.10-0.90); Monocytes % (Auto) 12.6 % (1.0-12.0); Neutrophils % (Auto) 74.6 % (38.0-78.0); Platelet Count 61 K/mcL (140-440); RBC 3.51 M/mcL (4.00-5.20); Red Cell Distribution Width 16.5 % (11.5-14.5)
[2020-04-08 07:39] LABS: ALT/SGPT 33 U/L (<40); AST/SGOT 85 U/L (<32); Albumin 3.2 gm/dL (3.2-5.2); Albumin/Globulin Ratio 1.5 (1.0-2.3); Alkaline Phosphatase 225 U/L (39-117); Bilirubin,Direct 1.4 mg/dL (<0.3); Bilirubin,Total 4.2 mg/dL (0.1-1.0); Blood Urea Nitrogen 16 mg/dL (8-23); Carbon Dioxide 23 mmol/L (22-30); Chloride 102 mmol/L (96-108); Globulin 2.1 gm/dL (2.2-3.7); Glomerular Filtration Rate 66; Glucose 69 mg/dL (70-105); Lactate Dehydrogenase 269 U/L (135-225); Phosphorous 2.2 mg/dL (2.5-4.5); Triglycerides 58 mg/dL (<150); Uric Acid 9.8 mg/dL (2.5-8.0)
--- NOTE | 2020-04-08 07:44 | Internal Med Progress Note ---
SUBJECTIVE Subjective Patient information: Note initiated : 04/08/20 at 7:43 am Service Date, if different from initiated Date: [] Patient: Terese Copeland a 64 y/o F admitted on 04/05/20 for Weakness. Chief Complaint: [] Interval history: History of present illness: Ms. Copeland is a 64 year old F Presents the ED with her for increasing confusion weakness some abdominal discomfort. History is obtained from the given patient's altered mental state. Per the for the past couple days she become weaker and this morning she se emed really confused she had an abnormal gait, weak. He says she typically has been pretty compliant with her lactulose with exception of yesterday she had a hard time taking it and threw up a dose. Per the she has not had abdominal least a couple days. She is seen in the ER and her creatinine is found to be 1.8 BUN of 30. Ammonia was 250 and was 80-week ago. She had a paracentesis with 4 L out which was described as clear yellow. She is on the transplant list at [facility]. And she sees a beauty operator at [place] whom Dr. Mata talked to and amended hydration with holding diuretics as well as albumin and lactulose. 04/06 She had good bowel movements with the lactulose enemas yesterday. She is awake and alert but confused. Unable to gather review of systems given confusion 04/07 Sleeping soundly this morning. No overnight issues or new complaints. 04/08 Much better night. No overnight events or new complaints. Patient doing okay this morning still some mild confusion but better. Review of Systems: denies headache/fever/chills/nausea/vomiting/chest or abdominal pain/cough/dyspnea. Otherwise see above. Constitutional Vitals: Vital Signs Temp Pulse Resp BP Pulse Ox 98.3 F 111 H 13 110/74 99 04/08/20 04:00 04/06/20 10:01 04/08/20 06:57 04/08/20 06:00 04/08/20 06:57 Period Temp Pulse Resp BP Sys/Alvarez Pulse Ox Last 24 Hr 97.2 F-99 F 13-23 105-129/62-117 96-100 Intake and Output 04/07/20 04/08/20 04/08/20 21:59 05:59 13:59 Intake Total 1000 200 Output Total 0 300 Balance 1000 -100 Weight 65.499 kg Intake & Output: Intake & Output 04/07/20 04/08/20 04/08/20 21:59 05:59 13:59 Intake Total 1000 200 Output Total 0 300 Balance 1000 -100 Weight 65.499 kg Intake: IV 1000 Sodium Chloride 0.9% 500 ml @ 1000 70 mls/hr IV .[id number] [facility] Rx#: [id number] Oral 0 200 Output: Urine Catheter Amount 0 300 Other: Urine Appearance Clear Sediment Uretheral (Tanner) Clear Urine Color Dark Sole Dark Sole Uretheral (Tanner) Dark Sole Dark Sole Urine Odor Normal Uretheral (Tanner) Normal Stool Size Copious Small Stool Color Yellow Brown Yellow Stool Consistency Liquid Watery Watery Loose Loose # of times incontinent of 1 1 Bowels Exam: General: awake, No acute Distress Eyes/N/T: EOMI, Head/Neck: neck supple, CV: RRR, No murmurs, Pulm: Clear b/l, no wheezing/rhonchi/rales Abd: soft, nontender, +BS x4 Ext: no clubbing/cyanosis/edema Neuro: awake, no focal deficits, moves all extremities, intermittent confusion skin: warm/dry OBJ DATA Labs CBC & Chem 7: 04/08/20 05:41 04/08/20 05:41 Labs: Abnormal Lab Results 04/08/20 04/08/20 04/07/20 05:41 05:41 05:14 RBC 3.51 L 3.09 L Hgb 10.5 L 9.0 L Hct 35.4 L 27.7 L MCV 100.9 H MCHC 29.7 L RDW 16.5 H 16.1 H Plt Count 61 L 54 L MPV 12.5 H 12.0 H Neut % (Auto) Lymph % (Auto) 9.0 L 9.1 L [place] % (Auto) 12.6 H 12.4 H Lymph # (Auto) 0.45 L 0.54 L [place] # (Auto) PT INR Sodium Potassium Chloride BUN Creatinine Glucose 69 L Uric Acid 9.8 H Phosphorus 2.2 L Total Bilirubin 4.2 H Direct Bilirubin 1.4 H GGT 76 H AST 85 H ALT Alkaline Phosphatase 225 H Ammonia Lactate Dehydrogenase 269 H Total Protein 5.3 L Albumin Globulin 2.1 L Albumin/Globulin Ratio Urine Urobilinogen Hyaline Casts Urine Mucus 04/07/20 04/06/20 04/06/20 05:13 05:37 05:37 RBC 3.34 L Hgb 9.8 L Hct 29.8 L MCV MCHC RDW 16.2 H Plt Count 63 L MPV 12.1 H Neut % (Auto) Lymph % (Auto) 8.2 L [place] % (Auto) 12.8 H Lymph # (Auto) 0.55 L [place] # (Auto) PT INR Sodium Potassium 3.0 L Chloride BUN 27 H Creatinine 1.3 H Glucose 67 L Uric Acid 9.9 H 11.8 H Phosphorus 1.9 L Total Bilirubin 4.0 H 4.1 H Direct Bilirubin 1.5 H 1.4 H GGT 75 H 71 H AST 105 H 59 H ALT Alkaline Phosphatase 226 H 238 H Ammonia Lactate Dehydrogenase 265 H 264 H Total Protein 5.3 L 5.6 L Albumin Globulin 2.1 L Albumin/Globulin Ratio Urine Urobilinogen Hyaline Casts Urine Mucus 04/05/20 04/05/20 04/05/20 12:15 07:38 07:38 RBC Hgb Hct MCV MCHC RDW Plt Count MPV Neut % (Auto) Lymph % (Auto) [place] % (Auto) Lymph # (Auto) [place] # (Auto) PT INR Sodium 131 L Potassium Chloride 92 L BUN 30 H Creatinine 1.8 H Glucose Uric Acid Phosphorus Total Bilirubin 3.7 H Direct Bilirubin GGT AST 92 H ALT 43 H Alkaline Phosphatase 345 H Ammonia 249 H Lactate Dehydrogenase Total Protein Albumin 3.1 L Globulin Albumin/Globulin Ratio 0.9 L Urine Urobilinogen 4.0 A Hyaline Casts 8 H Urine Mucus Few A 04/05/20 04/05/20 07:38 07:38 RBC 3.99 L Hgb 11.8 L Hct 35.8 L MCV MCHC RDW 15.9 H Plt Count 85 L MPV 12.6 H Neut % (Auto) 79.8 H Lymph % (Auto) 5.7 L [place] % (Auto) 12.3 H Lymph # (Auto) 0.55 L [place] # (Auto) 1.19 H PT 17.2 H INR 1.4 H Sodium Potassium Chloride BUN Creatinine Glucose Uric Acid Phosphorus Total Bilirubin Direct Bilirubin GGT AST ALT Alkaline Phosphatase Ammonia Lactate Dehydrogenase Total Protein Albumin Globulin Albumin/Globulin Ratio Urine Urobilinogen Hyaline Casts Urine Mucus Meds: Medications Cyclobenzaprine HCl (Flexeril) 20 mg PO HS [facility] Last Admin: 04/08/20 00:05 Dose: Not Given Documented by: Docusate Sodium (Colace) 100 mg PO BID [facility] Last Admin: 04/08/20 00:05 Dose: Not Given Documented by: Enoxaparin Sodium (Lovenox) 40 mg SQ DAILY [facility] Last Admin: 04/07/20 10:50 Dose: 40 mg Documented by: Potassium Chloride 40 meq/ (Dextrose) 520 mls @ 130 mls/hr IV UD PRN PRN Reason: Potassium < 3 Magnesium Sulfate (Magnesium Sulfate) 2 gm in 50 mls @ 50 mls/hr IV UD PRN PRN Reason: Magnesium </= 1.6 Lactulose (Cephulac) 20 gm PO DAILYP PRN PRN Reason: Constipation Lactulose (Cephulac) 30 gm PO QIDP PRN PRN Reason: CONSTIPATION Last Admin: 04/07/20 15:50 Dose: 30 gm Documented by: Lorazepam (Ativan) 0.5 mg IV Q4-6HP PRN PRN Reason: ANXIETY/SEDATION Last Admin: 04/07/20 10:47 Dose: 0.5 mg Documented by: Omeprazole (Prilosec) 20 mg PO ACB [facility] Last Admin: 04/07/20 09:41 Dose: 20 mg Documented by: Ondansetron HCl (Zofran) 4 mg IV Q4HP PRN PRN Reason: Nausea And Vomiting Last Admin: 04/05/20 18:43 Dose: 4 mg Documented by: Potassium Chloride (Kdur) 40 meq PO UD PRN PRN Reason: Potssium is 3-3.5 Last Admin: 04/07/20 10:02 Dose: 40 meq Documented by: Potassium Chloride (Kdur) 40 meq PO UD PRN PRN Reason: Potassium < 3 Senna (Senokot) 2 tab PO DAILYP PRN PRN Reason: Constipation Last Admin: 04/07/20 10:02 Dose: 2 tab Documented by: Sodium Chloride (Saline Flush) 10 ml IV Q8 [facility] Last Admin: 04/08/20 05:41 Dose: 10 ml Documented by: Tramadol HCl (Ultram) 50 mg PO QIDP PRN; Protocol PRN Reason: Pain Last Admin: 04/07/20 09:40 Dose: 50 mg Documented by: A/P Narrative A/P Narrative: A: *Hepatic encephalopathy grade III: mentation improving but still with confusion and impulsive at times -has been agitated/impulsive at times since she became more alert, calm last night -still with some mild confusion, much improved *DAVON on CKD II: -Improved with IV hydration and holding diuretics *Hyponatremia, mild: Resolved *Hypokalemia: *Cirrhosis 2/2 Hep C/HCC/etoh: with sequelae including Esophageal varices/thrombocytopenia/Ascites -on transplant list at [facility] and follows with beauty operator Dr. Hernandez @[place] -Paracentesis (04/05) 4L's *GERD: *Anemia: P: -case discussed with her beauty operator Dr. Hernandez who recommended hydration/hold diuretics/albumin/lactulose -Rifaximin, lactulose titrate to 2-3 soft BM/day -gentle hydration, hold diuretics (bumex/aldactone/metolazone) -CM for placement needs -pt/ot -ppx: Lovenox (unless PLT<50k)/home PPI DNR Time Spent With Patient Time: Total time spent is greater than 50% in coordination of care (as documented) at patient's floor/unit and/or counseling patient: QUALITY VTE Deep Vein Thrombosis/Pulmonary Embolism Present on Admission: No
[2020-04-08] MEDS: OMEPRAZOLE 20 MG CAPSULE PO SCH (08:29)
[2020-04-08] MEDS: ENOXAPARIN 40 MG/0.4 ML SYRINGE SQ SCH (08:30)
[2020-04-08] MEDS: LACTULOSE 20 GM/30 ML ORAL.SOL PO PRN (14:15)
[2020-04-08] MEDS: LORazepam 2 MG/ML VIAL IV PRN (22:15)
[2020-04-09] MEDS: 0.9 % SODIUM CHLORIDE 10 ML SYRINGE IV SCH ×3 (05:29→20:29)
[2020-04-09] MEDS: OMEPRAZOLE 20 MG CAPSULE PO SCH (07:08)
[2020-04-09] MEDS: LACTULOSE 20 GM/30 ML ORAL.SOL PO PRN ×2 (07:08→17:04)
[2020-04-09 07:28] LABS: Basophils # (Auto) 0.04 K/mcL (0.00-0.20); Basophils % (Auto) 0.7 % (0.0-2.0); Eosinophils # (Auto) 0.16 K/mcL (0.00-0.70); Eosinophils % (Auto) 2.7 % (0.0-7.0); Hematocrit 28.3 % (36.0-48.0); Hemoglobin 9.5 g/dL (12.0-15.0); Lymphocytes # (Auto) 0.39 K/mcL (1.50-4.80); Lymphocytes % (Auto) 6.7 % (15.0-49.0); Mean Cell Volume 89.3 fL (80.0-100.0); Mean Corpuscular HGB Conc 33.6 g/dL (31.0-36.0); Mean Platelet Volume 12.3 fL (7.4-10.4); Neutrophils % (Auto) 77.9 % (38.0-78.0); Platelet Count 55 K/mcL (140-440); RBC 3.17 M/mcL (4.00-5.20); Red Cell Distribution Width 15.7 % (11.5-14.5); WBC 5.8 K/mcL (4.5-11.0)
[2020-04-09 07:55] LABS: ALT/SGPT 32 U/L (<40); AST/SGOT 80 U/L (<32); Albumin 3.1 gm/dL (3.2-5.2); Albumin/Globulin Ratio 1.4 (1.0-2.3); Alkaline Phosphatase 248 U/L (39-117); Bilirubin,Direct 1.3 mg/dL (<0.3); Bilirubin,Total 3.4 mg/dL (0.1-1.0); Blood Urea Nitrogen 15 mg/dL (8-23); Calcium 8.8 mg/dL (8.6-10.4); Carbon Dioxide 23 mmol/L (22-30); Chloride 98 mmol/L (96-108); Globulin 2.2 gm/dL (2.2-3.7); Glomerular Filtration Rate 58; Glucose 81 mg/dL (70-105); Lactate Dehydrogenase 272 U/L (135-225); Triglycerides 58 mg/dL (<150); Uric Acid 8.7 mg/dL (2.5-8.0)
[2020-04-09] MEDS: ENOXAPARIN 40 MG/0.4 ML SYRINGE SQ SCH (09:14)
[2020-04-09] MEDS: RIFAXIMIN 550 MG TABLET PO SCH ×2 (09:15→20:29)
[2020-04-09] MEDS: DOCUSATE SODIUM 100 MG CAPSULE PO SCH ×2 (09:15→20:29)
[2020-04-09] MEDS ORDERED: POTASSIUM CHLORIDE 20 MEQ TABLET PO PRN (10:36)
[2020-04-09] MEDS ORDERED: POTASSIUM CHLORIDE 40 MEQ in DEXTROSE 5% IN WATER 500 ML IV PRN (10:36)
[2020-04-09] MEDS ORDERED: SENNOSIDES 1 TABLET PO PRN (10:36)
[2020-04-09] MEDS ORDERED: ALBUTEROL SULFATE 200 PUFF INHALER INH PRN (10:36)
[2020-04-09] MEDS ORDERED: ONDANSETRON 4 MG/2 ML VIAL IV PRN (10:36)
[2020-04-09] MEDS ORDERED: MAGNESIUM SULFATE 2 GM/50 ML BAG IV PRN (10:36)
--- NOTE | 2020-04-09 12:02 | Internal Med Progress Note ---
SUBJECTIVE Subjective Patient information: Note initiated : 04/09/20 at 11:56 am Service Date, if different from initiated Date: [] Patient: Terese Copeland a 64 y/o F admitted on 04/05/20 for Weakness. Chief Complaint: Interval history: History of present illness: Ms. Copeland is a 64 year old F Presents the ED with her for increasing confusion weakness some abdominal discomfort. History is obtained from the given patient's altered mental state. Per the for the past couple days she become weaker and this morning she s eemed really confused she had an abnormal gait, weak. He says she typically has been pretty compliant with her lactulose with exception of yesterday she had a hard time taking it and threw up a dose. Per the she has not had abdominal least a couple days. She is seen in the ER and her creatinine is found to be 1.8 BUN of 30. Ammonia was 250 and was 80-week ago. She had a paracentesis with 4 L out which was described as clear yellow. She is on the transplant list at [facility]. And she sees a cognos developer at [place] whom Dr. Mata talked to and amended hydration with holding diuretics as well as albumin and lactulose. 04/06 She had good bowel movements with the lactulose enemas yesterday. She is awake and alert but confused. Unable to gather review of systems given confusion 04/07 Sleeping soundly this morning. No overnight issues or new complaints. 04/08 Much better night. No overnight events or new complaints. Patient doing okay this morning still some mild confusion but better. 04/09-patient clinically improving. However remains confused. Responding to rifaximin/lactulose. Continue existing treatment. White count stable. Minimal abdominal discomfort on examination. Paracentesis today. Hemoglobin 9.5. Sodium 130, bilirubin gradually downtrending 3.4, creatinine stable. Await paracentesis fluid evaluation for culture/count/protein/microscopy Constitutional Vitals: Vital Signs Temp Pulse Resp BP Pulse Ox 97.9 F 105 H 20 112/94 97 04/09/20 06:00 04/09/20 02:00 04/09/20 02:00 04/09/20 06:00 04/09/20 06:01 Period Temp Pulse Resp BP Sys/Alvarez Pulse Ox Last 24 Hr 97.9 F-99.1 F 105-105 99-121/43-98 95-100 Intake and Output 04/08/20 04/09/20 04/09/20 21:59 05:59 13:59 Intake Total 1075 350 Output Total 275 425 Balance 800 -75 Weight 66.814 kg Alert but confused Minimal icterus Ascites noted No telemetry events Tanner draining clear urine Intake & Output: Intake & Output 04/08/20 04/09/20 04/09/20 21:59 05:59 13:59 Intake Total 1075 350 Output Total 275 425 Balance 800 -75 Weight 66.814 kg Intake: Oral 1075 350 Output: Urine Catheter Amount 275 425 Other: Meal Dinner Percent of Meal Consumed 75% Feeding Ability Assist with Tray Set Up Urine Appearance Clear Urine Color Dark Sole Dark Yellow Uretheral (Tanner) Dark Sole Urine Odor Normal Normal Stool Size Copious Stool Color Yellow Stool Consistency Liquid # Bowel Movements 1 # of times incontinent of 1 0 Bowels OBJ DATA Labs CBC & Chem 7: 04/09/20 05:22 04/09/20 05:22 Labs: Abnormal Lab Results 04/09/20 04/09/20 04/08/20 05:22 05:22 05:41 RBC 3.17 L Hgb 9.5 L Hct 28.3 L MCV MCHC RDW 15.7 H Plt Count 55 L MPV 12.3 H Lymph % (Auto) 6.7 L Chaves % (Auto) Lymph # (Auto) 0.39 L Sodium 130 L Potassium Glucose 69 L Uric Acid 8.7 H 9.8 H Phosphorus 2.0 L 2.2 L Total Bilirubin 3.4 H 4.2 H Direct Bilirubin 1.3 H 1.4 H GGT 78 H 76 H AST 80 H 85 H Alkaline Phosphatase 248 H 225 H Lactate Dehydrogenase 272 H 269 H Total Protein 5.3 L 5.3 L Albumin 3.1 L Globulin 2.1 L 04/08/20 04/07/20 04/07/20 05:41 05:14 05:13 RBC 3.51 L 3.09 L Hgb 10.5 L 9.0 L Hct 35.4 L 27.7 L MCV 100.9 H MCHC 29.7 L RDW 16.5 H 16.1 H Plt Count 61 L 54 L MPV 12.5 H 12.0 H Lymph % (Auto) 9.0 L 9.1 L Chaves % (Auto) 12.6 H 12.4 H Lymph # (Auto) 0.45 L 0.54 L Sodium Potassium 3.0 L Glucose Uric Acid 9.9 H Phosphorus 1.9 L Total Bilirubin 4.0 H Direct Bilirubin 1.5 H GGT 75 H AST 105 H Alkaline Phosphatase 226 H Lactate Dehydrogenase 265 H Total Protein 5.3 L Albumin Globulin 2.1 L Meds: Medications Albuterol Sulfate (Ventolin) 2 puff INH Q4-6HP PRN PRN Reason: Shortness Of Breath Cyclobenzaprine HCl (Flexeril) 20 mg PO HS [facility] Docusate Sodium (Colace) 100 mg PO BID [facility] Enoxaparin Sodium (Lovenox) 40 mg SQ DAILY [facility] Magnesium Sulfate (Magnesium Sulfate) 2 gm in 50 mls @ 50 mls/hr IV UD PRN PRN Reason: Magnesium </= 1.6 Potassium Chloride 40 meq/ (Dextrose) 520 mls @ 130 mls/hr IV UD PRN PRN Reason: Potassium < 3 Lactulose (Cephulac) 30 gm PO QIDP PRN PRN Reason: CONSTIPATION Lorazepam (Ativan) 0.5 mg IV Q4-6HP PRN PRN Reason: ANXIETY/SEDATION Omeprazole (Prilosec) 20 mg PO ACB [facility] Ondansetron HCl (Zofran) 4 mg IV Q4HP PRN PRN Reason: Nausea And Vomiting Potassium Chloride (Kdur) 40 meq PO UD PRN PRN Reason: Potssium is 3-3.5 Potassium Chloride (Kdur) 40 meq PO UD PRN PRN Reason: Potassium < 3 Senna (Senokot) 2 tab PO DAILYP PRN PRN Reason: Constipation Sodium Chloride (Saline Flush) 10 ml IV Q8 [facility] Spironolactone (Aldactone) 100 mg PO BID [facility] Tramadol HCl (Ultram) 50 mg PO QIDP PRN; Protocol PRN Reason: Pain A/P Narrative A/P Narrative: *Hepatic encephalopathy grade III: mentation gradually improving but still with confusion and impulsive at times -Continue rifaximin/lactulose. Rule out cause of decompensation including spontaneous vaginal peritonitis. *DAVON on CKD II: Improved with IV hydration and holding diuretics *Hyponatremia, mild: Secondary to cirrhosis and spironolactone *Hypokalemia: Resolved *Cirrhosis 2/2 Hep C/HCC/etoh: with sequelae including Esophageal varices/thr ombocytopenia/Ascites -on transplant list at [facility] and follows with cognos developer Dr. Hernandez @[facility] -Paracentesis (04/05) 4L's, repeat paracentesis today, previous paracentesis total cell count less than 250. *GERD: *Anemia: Plan -case discussed with her cognos developer Dr. Hernandez who recommended hydration/hold diuretics/albumin/lactulose -Rifaximin, lactulose titrate to 2-3 soft BM/day -Hold diuretics -CM for placement needs -pt/ot -ppx: Lovenox (unless PLT<50k)/home PPI Time Spent With Patient Time: Total time spent is greater than 50% in coordination of care (as documented) at patient's floor/unit and/or counseling patient: QUALITY VTE Deep Vein Thrombosis/Pulmonary Embolism Present on Admission: No
[2020-04-09 13:50] LABS: Glucose,Peritoneal Fluid 100 mg/dL
[2020-04-09 13:51] LABS: Total Protein,Peritoneal Fluid 0.6 gm/dL
[2020-04-09 16:19] LABS: Mesothelial,Peritoneal Fluid 2 %; Neutrophils,Peritoneal Fluid 33 %; Nucleated Cel,Peritoneal Fluid 104 /cumm
[2020-04-09] MEDS: SPIRONOLACTONE 25 MG TABLET PO SCH (17:04)
--- NOTE | 2020-04-09 18:18 | Ultrasound Report ---
INDICATION: Ascites. Pelvic encephalopathy TECHNIQUE: Informed consent was obtained. Ascitic fluid was localized in the lower abdomen. Routine ChloraPrep skin cleansing. 1% lidocaine injected subcutaneously and deep. A right lower quadrant approach was used An 8 [place] safety centesis set was utilized. 2 L clear yellow fluid removed. Fluid was sent to the laboratory for requested studies COMPARISON: Previous examination dated 04/05/2020 IMPRESSION: 1. Ultrasound-guided paracentesis 2. 2 L clear yellow fluid removed Interpreted and Authenticated by: Danny Omer 04/09/20
[2020-04-09] MEDS: CYCLOBENZAPRINE 10 MG TABLET PO SCH (20:29)
[2020-04-09] MEDS: POTASSIUM CHLORIDE 20 MEQ TABLET PO PRN (20:29)
[2020-04-09] MEDS ORDERED: SPIRONOLACTONE 25 MG TABLET PO SCH (21:00)
[2020-04-10] MEDS: LACTULOSE 20 GM/30 ML ORAL.SOL PO PRN ×4 (02:07→20:25)
[2020-04-10] MEDS: 0.9 % SODIUM CHLORIDE 10 ML SYRINGE IV SCH ×3 (04:07→20:26)
[2020-04-10 07:21] LABS: Basophils # (Auto) 0.04 K/mcL (0.00-0.20); Basophils % (Auto) 0.7 % (0.0-2.0); Eosinophils # (Auto) 0.18 K/mcL (0.00-0.70); Eosinophils % (Auto) 3.2 % (0.0-7.0); Hematocrit 28.4 % (36.0-48.0); Hemoglobin 9.8 g/dL (12.0-15.0); Lymphocytes # (Auto) 0.42 K/mcL (1.50-4.80); Lymphocytes % (Auto) 7.4 % (15.0-49.0); Mean Cell Volume 87.4 fL (80.0-100.0); Mean Corpuscular HGB Conc 34.5 g/dL (31.0-36.0); Mean Platelet Volume 12.8 fL (7.4-10.4); Monocytes % (Auto) 12.3 % (1.0-12.0); Neutrophils % (Auto) 76.4 % (38.0-78.0); Platelet Count 55 K/mcL (140-440); RBC 3.25 M/mcL (4.00-5.20); Red Cell Distribution Width 15.8 % (11.5-14.5); WBC 5.7 K/mcL (4.5-11.0)
[2020-04-10 07:51] LABS: ALT/SGPT 36 U/L (<40); AST/SGOT 83 U/L (<32); Albumin 3.1 gm/dL (3.2-5.2); Albumin/Globulin Ratio 1.4 (1.0-2.3); Alkaline Phosphatase 252 U/L (39-117); Bilirubin,Direct 1.2 mg/dL (<0.3); Bilirubin,Total 3.3 mg/dL (0.1-1.0); Blood Urea Nitrogen 13 mg/dL (8-23); Calcium 8.9 mg/dL (8.6-10.4); Carbon Dioxide 23 mmol/L (22-30); Chloride 98 mmol/L (96-108); Globulin 2.2 gm/dL (2.2-3.7); Glomerular Filtration Rate 66; Glucose 71 mg/dL (70-105); Lactate Dehydrogenase 288 U/L (135-225); Phosphorous 1.9 mg/dL (2.5-4.5); Triglycerides 54 mg/dL (<150)
[2020-04-10] MEDS: RIFAXIMIN 550 MG TABLET PO SCH ×2 (09:04→20:25)
[2020-04-10] MEDS: ENOXAPARIN 40 MG/0.4 ML SYRINGE SQ SCH (09:04)
--- NOTE | 2020-04-10 09:04 | Internal Med Progress Note ---
SUBJECTIVE Subjective Patient information: Note initiated : 04/10/20 at 9:01 am Service Date, if different from initiated Date: [] Patient: Terese Copeland a 64 y/o F admitted on 04/05/20 for Weakness. Chief Complaint: [] Interval history: History of present illness: Ms. Copeland is a 64 year old F Presents the ED with her for increasing confusion weakness some abdominal discomfort. History is obtained from the given patient's altered mental state. Per the for the past couple days she become weaker and this morning she se emed really confused she had an abnormal gait, weak. He says she typically has been pretty compliant with her lactulose with exception of yesterday she had a hard time taking it and threw up a dose. Per the she has not had abdominal least a couple days. She is seen in the ER and her creatinine is found to be 1.8 BUN of 30. Ammonia was 250 and was 80-week ago. She had a paracentesis with 4 L out which was described as clear yellow. She is on the transplant list at [facility]. And she sees a veterans service representative at [place] whom Dr. Mata talked to and amended hydration with holding diuretics as well as albumin and lactulose. 04/06 She had good bowel movements with the lactulose enemas yesterday. She is awake and alert but confused. Unable to gather review of systems given confusion 04/07 Sleeping soundly this morning. No overnight issues or new complaints. 04/08 Much better night. No overnight events or new complaints. Patient doing okay this morning still some mild confusion but better. 04/09-patient clinically improving. However remains confused. Responding to rifaximin/lactulose. Continue existing treatment. White count stable. Minimal abdominal discomfort on examination. Paracentesis today. Hemoglobin 9.5. Sodium 130, bilirubin gradually downtrending 3.4, creatinine stable. Await paracentesis fluid evaluation for culture/count/protein/microscopy 04/10-patient demonstrating gradual improvement in mental status but remains encephalopathic major part of the day, renal function stable. Status post 2 L paracentesis. Cell count 104, Gram stain negative. Afebrile. Continue rifaximin/lactulose. Constitutional Vitals: Vital Signs Temp Pulse Resp BP Pulse Ox 98.5 F 99 H 18 113/78 98 04/10/20 07:25 04/10/20 07:25 04/10/20 07:25 04/10/20 07:25 04/10/20 07:25 Period Temp Pulse Resp BP Sys/Alvarez Pulse Ox Last 24 Hr 97 F-98.6 F 89-99 04-25 107-118/63-82 98-100 Intake and Output 04/09/20 04/10/20 04/10/20 21:59 05:59 13:59 Intake Total 1020 100 Output Total 275 100 Balance 745 0 Weight 65.408 kg confused disoriented Awakens response Nonlabored breathing Nondistended nontender abdomen Mild icterus Intake & Output: Intake & Output 04/09/20 04/10/20 04/10/20 21:59 05:59 13:59 Intake Total 1020 100 Output Total 275 100 Balance 745 0 Weight 65.408 kg Intake: Oral 1020 100 Output: Urine Catheter Amount 275 Void Amount 100 Other: Meal Dinner Percent of Meal Consumed 50% Feeding Ability Assist with Tray Set Up Urine Color Campbell Campbell Exam: General: awake, No acute Distress Eyes/N/T: EOMI, Head/Neck: neck supple, CV: RRR, No murmurs, Pulm: Clear b/l, no wheezing/rhonchi/rales Abd: soft, nontender, +BS x4 Ext: no clubbing/cyanosis/edema Neuro: awake, no focal deficits, moves all extremities, intermittent confusion skin: warm/dry OBJ DATA Labs CBC & Chem 7: 04/10/20 05:11 04/10/20 05:11 Labs: Abnormal Lab Results 04/10/20 04/10/20 04/09/20 05:11 05:11 05:22 RBC 3.25 L 3.17 L Hgb 9.8 L 9.5 L Hct 28.4 L 28.3 L MCV MCHC RDW 15.8 H 15.7 H Plt Count 55 L 55 L MPV 12.8 H 12.3 H Lymph % (Auto) 7.4 L 6.7 L Woodson % (Auto) 12.3 H Lymph # (Auto) 0.42 L 0.39 L Sodium 132 L Glucose Uric Acid Phosphorus 1.9 L Total Bilirubin 3.3 H Direct Bilirubin 1.2 H GGT 80 H AST 83 H Alkaline Phosphatase 252 H Lactate Dehydrogenase 288 H Total Protein 5.3 L Albumin 3.1 L Globulin 04/09/20 04/08/20 04/08/20 05:22 05:41 05:41 RBC 3.51 L Hgb 10.5 L Hct 35.4 L MCV 100.9 H MCHC 29.7 L RDW 16.5 H Plt Count 61 L MPV 12.5 H Lymph % (Auto) 9.0 L Woodson % (Auto) 12.6 H Lymph # (Auto) 0.45 L Sodium 130 L Glucose 69 L Uric Acid 8.7 H 9.8 H Phosphorus 2.0 L 2.2 L Total Bilirubin 3.4 H 4.2 H Direct Bilirubin 1.3 H 1.4 H GGT 78 H 76 H AST 80 H 85 H Alkaline Phosphatase 248 H 225 H Lactate Dehydrogenase 272 H 269 H Total Protein 5.3 L 5.3 L Albumin 3.1 L Globulin 2.1 L Meds: Medications Albuterol Sulfate (Ventolin) 2 puff INH Q4-6HP PRN PRN Reason: Shortness Of Breath Cyclobenzaprine HCl (Flexeril) 20 mg PO HS [facility] Last Admin: 04/09/20 20:29 Dose: 20 mg Documented by: Docusate Sodium (Colace) 100 mg PO BID [facility] Last Admin: 04/09/20 20:29 Dose: 100 mg Documented by: Enoxaparin Sodium (Lovenox) 40 mg SQ DAILY [facility] Magnesium Sulfate (Magnesium Sulfate) 2 gm in 50 mls @ 50 mls/hr IV UD PRN PRN Reason: Magnesium </= 1.6 Potassium Chloride 40 meq/ (Dextrose) 520 mls @ 130 mls/hr IV UD PRN PRN Reason: Potassium < 3 Lactulose (Cephulac) 30 gm PO QIDP PRN PRN Reason: CONSTIPATION Last Admin: 04/10/20 02:07 Dose: 30 gm Documented by: Lorazepam (Ativan) 0.5 mg IV Q4-6HP PRN PRN Reason: ANXIETY/SEDATION Omeprazole (Prilosec) 20 mg PO ACB [facility] Ondansetron HCl (Zofran) 4 mg IV Q4HP PRN PRN Reason: Nausea And Vomiting Potassium Chloride (Kdur) 40 meq PO UD PRN PRN Reason: Potssium is 3-3.5 Last Admin: 04/09/20 20:29 Dose: 40 meq Documented by: Potassium Chloride (Kdur) 40 meq PO UD PRN PRN Reason: Potassium < 3 Senna (Senokot) 2 tab PO DAILYP PRN PRN Reason: Constipation Sodium Chloride (Saline Flush) 10 ml IV Q8 [facility] Last Admin: 04/10/20 04:07 Dose: 10 ml Documented by: Spironolactone (Aldactone) 50 mg PO BIDD [facility] Last Admin: 04/09/20 17:04 Dose: 50 mg Documented by: Tramadol HCl (Ultram) 50 mg PO QIDP PRN; Protocol PRN Reason: Pain A/P Narrative A/P Narrative: *Hepatic encephalopathy grade III: Fluctuating mental status alternating with periods of lucidity and impulsivity -Continue rifaximin/lactulose. Repeat paracentesis no evidence of SBP *DAVON on CKD II: Improved with IV hydration , restart spironolactone at half dose *Hyponatremia, mild: Secondary to cirrhosis and spironolactone *Hypokalemia: Resolved *Cirrhosis 2/2 Hep C/HCC/etoh: with sequelae including Esophageal varices/thrombocytopenia/Ascites -on transplant list at [facility] and follows with veterans service representative Dr. Hernandez @[place] -Paracentesis (04/05) 4L's, 12/ 2 L -cell count around 100, negative cultures -Continue spironolactone at half dose *GERD: *Anemia: Plan -case discussed with her veterans service representative Dr. Hernandez who recommended hydration/hold diuretics/albumin/lactulose -Rifaximin, lactulose titrate to 2-3 soft BM/day -After spironolactone -CM for placement needs -pt/ot -ppx: Lovenox (unless PLT<50k)/home PPI Time Spent With Patient Time: Total time spent is greater than 50% in coordination of care (as documented) at patient's floor/unit and/or counseling patient: QUALITY VTE Deep Vein Thrombosis/Pulmonary Embolism Present on Admission: No
[2020-04-10] MEDS: OMEPRAZOLE 20 MG CAPSULE PO SCH (09:05)
[2020-04-10] MEDS: SPIRONOLACTONE 25 MG TABLET PO SCH ×2 (09:05→17:08)
[2020-04-10] MEDS: DOCUSATE SODIUM 100 MG CAPSULE PO SCH ×2 (09:06→20:26)
[2020-04-10 15:58] LABS: Monocyte,Peritoneal Fluid 52 %
[2020-04-10] MEDS: CYCLOBENZAPRINE 10 MG TABLET PO SCH (20:25)
[2020-04-10] MEDS: traMADol 50 MG TABLET PO PRN (20:32)
[2020-04-10] MEDS ORDERED: RIFAXIMIN 550 MG PO SCH (21:00)
[2020-04-10] MEDS: LORazepam 2 MG/ML VIAL IV PRN (22:33)
[2020-04-11] MEDS: traMADol 50 MG TABLET PO PRN ×2 (01:12→10:21)
[2020-04-11] MEDS: LORazepam 2 MG/ML VIAL IV PRN (03:59)
[2020-04-11] MEDS: 0.9 % SODIUM CHLORIDE 10 ML SYRINGE IV SCH ×3 (06:19→21:34)
[2020-04-11 07:37] LABS: ALT/SGPT 38 U/L (<40); AST/SGOT 92 U/L (<32); Albumin 3.1 gm/dL (3.2-5.2); Albumin/Globulin Ratio 1.3 (1.0-2.3); Alkaline Phosphatase 275 U/L (39-117); Bilirubin,Direct 1.3 mg/dL (<0.3); Bilirubin,Total 2.8 mg/dL (0.1-1.0); Blood Urea Nitrogen 11 mg/dL (8-23); Calcium 8.7 mg/dL (8.6-10.4); Carbon Dioxide 21 mmol/L (22-30); Chloride 102 mmol/L (96-108); Globulin 2.4 gm/dL (2.2-3.7); Glomerular Filtration Rate 76; Glucose 89 mg/dL (70-105); Lactate Dehydrogenase 303 U/L (135-225); Phosphorous 2.1 mg/dL (2.5-4.5); Triglycerides 54 mg/dL (<150); Uric Acid 7.2 mg/dL (2.5-8.0)
[2020-04-11 07:56] LABS: Basophils # (Auto) 0.03 K/mcL (0.00-0.20); Basophils % (Auto) 0.4 % (0.0-2.0); Eosinophils # (Auto) 0.17 K/mcL (0.00-0.70); Eosinophils % (Auto) 2.4 % (0.0-7.0); Hematocrit 29.1 % (36.0-48.0); Hemoglobin 9.8 g/dL (12.0-15.0); Lymphocytes # (Auto) 0.47 K/mcL (1.50-4.80); Lymphocytes % (Auto) 6.8 % (15.0-49.0); Mean Cell Volume 89.8 fL (80.0-100.0); Mean Corpuscular HGB Conc 33.7 g/dL (31.0-36.0); Neutrophils % (Auto) 77.4 % (38.0-78.0); Platelet Count 54 K/mcL (140-440); RBC 3.24 M/mcL (4.00-5.20); Red Cell Distribution Width 16.2 % (11.5-14.5); WBC 6.9 K/mcL (4.5-11.0)
--- NOTE | 2020-04-11 09:18 | Internal Med Progress Note ---
SUBJECTIVE Subjective Patient information: Note initiated : 04/11/20 at 9:16 am Service Date, if different from initiated Date: [] Patient: Terese Copeland a 64 y/o F admitted on 04/05/20 for Weakness. Chief Complaint: [] Interval history: History of present illness: Ms. Copeland is a 64 year old F Presents the ED with her for increasing confusion weakness some abdominal discomfort. History is obtained from the given patient's altered mental state. Per the for the past couple days she become weaker and this morning she se emed really confused she had an abnormal gait, weak. He says she typically has been pretty compliant with her lactulose with exception of yesterday she had a hard time taking it and threw up a dose. Per the she has not had abdominal least a couple days. She is seen in the ER and her creatinine is found to be 1.8 BUN of 30. Ammonia was 250 and was 80-week ago. She had a paracentesis with 4 L out which was described as clear yellow. She is on the transplant list at [facility]. And she sees a psych arnp at [place] whom Dr. Mata talked to and amended hydration with holding diuretics as well as albumin and lactulose. 04/06 She had good bowel movements with the lactulose enemas yesterday. She is awake and alert but confused. Unable to gather review of systems given confusion 04/07 Sleeping soundly this morning. No overnight issues or new complaints. 04/08 Much better night. No overnight events or new complaints. Patient doing okay this morning still some mild confusion but better. 04/09-patient clinically improving. However remains confused. Responding to rifaximin/lactulose. Continue existing treatment. White count stable. Minimal abdominal discomfort on examination. Paracentesis today. Hemoglobin 9.5. Sodium 130, bilirubin gradually downtrending 3.4, creatinine stable. Await paracentesis fluid evaluation for culture/count/protein/microscopy 04/10-patient demonstrating gradual improvement in mental status but remains encephalopathic major part of the day, renal function stable. Status post 2 L paracentesis. Cell count 104, Gram stain negative. Afebrile. Continue rifaximin/lactulose. 04/11-much improved mental status this morning. Able to hold a conversation. Was unable to sleep at night. Bilirubin downtrending at 2.8. Creatinine stable at 0.8. Sodium 133. Anticipate discharge in 24 hours pending clinical improvement Constitutional Vitals: Vital Signs Temp Pulse Resp BP Pulse Ox 97.6 F 108 H 20 104/65 94 04/11/20 02:42 04/11/20 02:42 04/11/20 02:42 04/11/20 02:42 04/11/20 02:42 Period Temp Pulse Resp BP Sys/Alvarez Pulse Ox Last 24 Hr 97.6 F-98.9 F 79-108 - 100-120/56-75 94-98 Intake and Output 04/10/20 04/11/20 04/11/20 21:59 05:59 13:59 Intake Total 290 550 Output Total 200 Balance 290 350 Weight 66.769 kg Improve mentation No anxiety Resting comfortably Minimal ascites Intake & Output: Intake & Output 04/10/20 04/11/20 04/11/20 21:59 05:59 13:59 Intake Total 290 550 Output Total 200 Balance 290 350 Weight 66.769 kg Intake: Oral 290 550 Output: Void Amount 200 Other: Urine Appearance Clear Urine Color Dark Yellow Light Sole Stool Size Copious Stool Color Brown Fritz Colored Stool Consistency Soft Formed # Voids 1 OBJ DATA Labs CBC & Chem 7: 04/11/20 05:25 04/11/20 05:25 Labs: Abnormal Lab Results 04/11/20 04/11/20 04/10/20 05:25 05:25 05:11 RBC 3.24 L 3.25 L Hgb 9.8 L 9.8 L Hct 29.1 L 28.4 L RDW 16.2 H 15.8 H Plt Count 54 L 55 L MPV 12.0 H 12.8 H Lymph % (Auto) 6.8 L 7.4 L Henry % (Auto) 13.0 H 12.3 H Lymph # (Auto) 0.47 L 0.42 L Sodium Carbon Dioxide 21 L Uric Acid Phosphorus 2.1 L Total Bilirubin 2.8 H Direct Bilirubin 1.3 H GGT 87 H AST 92 H Alkaline Phosphatase 275 H Lactate Dehydrogenase 303 H Total Protein 5.5 L Albumin 3.1 L 04/10/20 04/09/20 04/09/20 05:11 05:22 05:22 RBC 3.17 L Hgb 9.5 L Hct 28.3 L RDW 15.7 H Plt Count 55 L MPV 12.3 H Lymph % (Auto) 6.7 L Henry % (Auto) Lymph # (Auto) 0.39 L Sodium 132 L 130 L Carbon Dioxide Uric Acid 8.7 H Phosphorus 1.9 L 2.0 L Total Bilirubin 3.3 H 3.4 H Direct Bilirubin 1.2 H 1.3 H GGT 80 H 78 H AST 83 H 80 H Alkaline Phosphatase 252 H 248 H Lactate Dehydrogenase 288 H 272 H Total Protein 5.3 L 5.3 L Albumin 3.1 L 3.1 L Meds: Medications Albuterol Sulfate (Ventolin) 2 puff INH Q4-6HP PRN PRN Reason: Shortness Of Breath Cyclobenzaprine HCl (Flexeril) 20 mg PO HS [facility] Last Admin: 04/10/20 20:25 Dose: 20 mg Documented by: Docusate Sodium (Colace) 100 mg PO BID [facility] Last Admin: 04/10/20 20:26 Dose: 100 mg Documented by: Enoxaparin Sodium (Lovenox) 40 mg SQ DAILY [facility] Last Admin: 04/10/20 09:04 Dose: 40 mg Documented by: Magnesium Sulfate (Magnesium Sulfate) 2 gm in 50 mls @ 50 mls/hr IV UD PRN PRN Reason: Magnesium </= 1.6 Potassium Chloride 40 meq/ (Dextrose) 520 mls @ 130 mls/hr IV UD PRN PRN Reason: Potassium < 3 Lactulose (Cephulac) 30 gm PO QIDP PRN PRN Reason: CONSTIPATION Last Admin: 04/10/20 20:25 Dose: 30 gm Documented by: Lorazepam (Ativan) 0.5 mg IV Q4-6HP PRN PRN Reason: ANXIETY/SEDATION Last Admin: 04/11/20 03:59 Dose: 0.5 mg Documented by: Omeprazole (Prilosec) 20 mg PO ACB [facility] Last Admin: 04/10/20 09:05 Dose: 20 mg Documented by: Ondansetron HCl (Zofran) 4 mg IV Q4HP PRN PRN Reason: Nausea And Vomiting Potassium Chloride (Kdur) 40 meq PO UD PRN PRN Reason: Potssium is 3-3.5 Last Admin: 04/09/20 20:29 Dose: 40 meq Documented by: Potassium Chloride (Kdur) 40 meq PO UD PRN PRN Reason: Potassium < 3 Senna (Senokot) 2 tab PO DAILYP PRN PRN Reason: Constipation Sodium Chloride (Saline Flush) 10 ml IV Q8 [facility] Last Admin: 04/11/20 06:19 Dose: Not Given Documented by: Spironolactone (Aldactone) 50 mg PO BIDD [facility] Last Admin: 04/10/20 17:08 Dose: 50 mg Documented by: Tramadol HCl (Ultram) 50 mg PO QIDP PRN; Protocol PRN Reason: Pain Last Admin: 04/11/20 01:12 Dose: 50 mg Documented by: A/P Narrative A/P Narrative: *Hepatic encephalopathy grade III: Clinical improvement noted. Occasional fluctuations with periods of lucidity and impulsivity -Continue rifaximin/lactulose. Repeat paracentesis no evidence of SBP *DAVON on CKD II: Improved with IV hydration , continue spironolactone at half dose *Hyponatremia, mild and stable: Secondary to cirrhosis and spironolactone *Hypokalemia: Resolved *Cirrhosis 2/2 Hep C/HCC/etoh: with sequelae including Esophageal varices/thrombocytopenia/Ascites -on transplant list at [facility] and follows with psych arnp Dr. Hernandez @[email or web address] -Paracentesis (04/05) 4L's, 04/09 2 L -cell count around 100, negative cultures -Continue spironolactone at half dose *GERD: *Anemia: Plan -case discussed with her psych arnp Dr. Hernandez who recommended hydration/hold diuretics/albumin/lactulose -Rifaximin, lactulose titrate to 2-3 soft BM/day -Continue half dose spironolactone -CM for placement needs, -pt/ot -ppx: Lovenox (unless PLT<50k)/home PPI Time Spent With Patient Time: Total time spent is greater than 50% in coordination of care (as documented) at patient's floor/unit and/or counseling patient: QUALITY VTE Deep Vein Thrombosis/Pulmonary Embolism Present on Admission: No
[2020-04-11] MEDS: SPIRONOLACTONE 25 MG TABLET PO SCH ×2 (10:12→16:23)
[2020-04-11] MEDS: ENOXAPARIN 40 MG/0.4 ML SYRINGE SQ SCH (10:13)
[2020-04-11] MEDS: OMEPRAZOLE 20 MG CAPSULE PO SCH (10:13)
[2020-04-11] MEDS: RIFAXIMIN 550 MG TABLET PO SCH ×2 (10:13→21:33)
[2020-04-11] MEDS: DOCUSATE SODIUM 100 MG CAPSULE PO SCH ×2 (10:15→21:33)
[2020-04-11] MEDS: POTASSIUM CHLORIDE 20 MEQ TABLET PO PRN (17:26)
[2020-04-11] MEDS ORDERED: traMADol 50 MG TABLET PO ONE (21:00)
[2020-04-11] MEDS: CYCLOBENZAPRINE 10 MG TABLET PO SCH (21:32)
[2020-04-12] MEDS: 0.9 % SODIUM CHLORIDE 10 ML SYRINGE IV SCH ×2 (06:27→13:16)
[2020-04-12 06:32] LABS: Basophils # (Auto) 0.05 K/mcL (0.00-0.20); Basophils % (Auto) 0.8 % (0.0-2.0); Eosinophils # (Auto) 0.24 K/mcL (0.00-0.70); Eosinophils % (Auto) 3.8 % (0.0-7.0); Hematocrit 29.1 % (36.0-48.0); Hemoglobin 9.8 g/dL (12.0-15.0); Lymphocytes # (Auto) 0.44 K/mcL (1.50-4.80); Mean Cell Volume 87.7 fL (80.0-100.0); Mean Corpuscular HGB Conc 33.7 g/dL (31.0-36.0); Monocytes # (Auto) 0.79 K/mcL (0.10-0.90); Monocytes % (Auto) 12.6 % (1.0-12.0); Neutrophils % (Auto) 75.8 % (38.0-78.0); Platelet Count 53 K/mcL (140-440); RBC 3.32 M/mcL (4.00-5.20); Red Cell Distribution Width 16.1 % (11.5-14.5); WBC 6.3 K/mcL (4.5-11.0)
[2020-04-12 06:46] LABS: ALT/SGPT 35 U/L (<40); AST/SGOT 73 U/L (<32); Albumin/Globulin Ratio 1.3 (1.0-2.3); Alkaline Phosphatase 255 U/L (39-117); Bilirubin,Direct 1.2 mg/dL (<0.3); Bilirubin,Total 3.3 mg/dL (0.1-1.0); Blood Urea Nitrogen 14 mg/dL (8-23); Calcium 8.8 mg/dL (8.6-10.4); Carbon Dioxide 23 mmol/L (22-30); Chloride 99 mmol/L (96-108); Globulin 2.4 gm/dL (2.2-3.7); Glomerular Filtration Rate 66; Glucose 64 mg/dL (70-105); Lactate Dehydrogenase 287 U/L (135-225); Phosphorous 2.5 mg/dL (2.5-4.5); Triglycerides 54 mg/dL (<150); Uric Acid 6.9 mg/dL (2.5-8.0)
[2020-04-12] MEDS: LACTULOSE 20 GM/30 ML ORAL.SOL PO PRN (08:24)
[2020-04-12] MEDS: RIFAXIMIN 550 MG TABLET PO SCH (08:25)
[2020-04-12] MEDS: OMEPRAZOLE 20 MG CAPSULE PO SCH (08:25)
[2020-04-12] MEDS: ENOXAPARIN 40 MG/0.4 ML SYRINGE SQ SCH (08:25)
[2020-04-12] MEDS: DOCUSATE SODIUM 100 MG CAPSULE PO SCH (08:25)
[2020-04-12] MEDS: SPIRONOLACTONE 25 MG TABLET PO SCH ×2 (08:25→15:04)
--- NOTE | 2020-04-12 10:29 | Discharge Summary ---
Discharge Provider Provider Patient information: Note initiated : 04/12/20 at 10:25 am Service Date, if different from initiated Date: [] Patient: Terese Copeland a 64 y/o F admitted on 04/05/20 for Weakness. discharge diagnosis *Hepatic encephalopathy grade III: Clinical improvement noted over the course of hospitalization. Occasional fluctuations with periods of lucidity and impulsivity however appears at baseline -Continue rifaximin/lactulose. Repeat paracentesis no evidence of SBP *DAVON on CKD II: Improved with IV hydration , continue spironolactone/Bumex at half dose *Hyponatremia, mild and stable: Secondary to cirrhosis and spironolactone use, stable *Hypokalemia: Resolved *Cirrhosis / Hep C/HCC/etoh: with sequelae including Esophageal varices/thrombocytopenia/Ascites -on transplant list at [facility] and follows with chief controller Dr. Murphy @[place] -Paracentesis (04/05) 4L's, 04/09 2 L -cell count around 100, negative cultures -Continue Bumex/spironolactone at half dose -Recommend follow-up with Dr. Garcia/transplant hepatology at [place] on discharge *GERD: *Anemia: Stable Brief hospital course History of present illness: Ms. Copeland is a 64 year old F Presents the ED with her for increasing confusion weakness some abdominal discomfort. History is obtained from the given patient's altered mental state. Per the for the past couple days she become weaker and this morning she seemed really confused she had an abnormal gait, weak. He says she typically has been pretty compliant with her lactulose with exception of yesterday she had a hard time taking it and threw up a dose. Per the she has not had abdominal least a couple days. She is seen in the ER and her creatinine is found to be 1.8 BUN of 30. Ammonia was 250 and was 80-week ago. She had a paracentesis with 4 L out which was described as clear yellow. She is on the transplant list at [facility]. And she sees a chief controller at [place] whom Dr. Mata talked to and amended hydration with holding diuretics as well as albumin and lactulose. 04/06 She had good bowel movements with the lactulose enemas yesterday. She is awake and alert but confused. Unable to gather review of systems given confusion 04/07 Sleeping soundly this morning. No overnight issues or new complaints. 04/08 Much better night. No overnight events or new complaints. Patient doing okay this morning still some mild confusion but better. 04/09-patient clinically improving. However remains confused. Responding to rifaximin/lactulose. Continue existing treatment. White count stable. Minimal abdominal discomfort on examination. Paracentesis today. Hemoglobin 9.5. Sodium 130, bilirubin gradually downtrending 3.4, creatinine stable. Await paracentesis fluid evaluation for culture/count/protein/microscopy 04/10-patient demonstrating gradual improvement in mental status but remains encephalopathic major part of the day, renal function stable. Status post 2 L paracentesis. Cell count 104, Gram stain negative. Afebrile. Continue rifaximin/lactulose. 04/11-much improved mental status this morning. Able to hold a conversation. Was unable to sleep at night. Bilirubin downtrending at 2.8. Creatinine stable at 0.8. Sodium 133. Anticipate discharge in 24 hours pending clinical improvement History of present illness: Ms. Copeland is a 64 year old F Presents the ED with her for increasing confusion weakness some abdominal discomfort. History is obtained from the given patient's altered mental state. Per the for the past couple days she become weaker and this morning she seemed really confused she had an abnormal gait, weak. He says she typically has been pretty compliant with her lactulose with exception of yesterday she had a hard time taking it and threw up a dose. Per the she has not had abdominal least a couple days. She is seen in the ER and her creatinine is found to be 1.8 BUN of 30. Ammonia was 250 and was 80-week ago. She had a paracentesis with 4 L out which was described as clear yellow. She is on the transplant list at [facility]. And she sees a chief controller at [place] whom Dr. Mata talked to and amended hydration with holding diuretics as well as albumin and lactulose. 04/06 She had good bowel movements with the lactulose enemas yesterday. She is awake and alert but confused. Unable to gather review of systems given confusion 04/07 Sleeping soundly this morning. No overnight issues or new complaints. 04/08 Much better night. No overnight events or new complaints. Patient doing okay this morning still some mild confusion but better. 04/09-patient clinically improving. However remains confused. Responding to rifaximin/lactulose. Continue existing treatment. White count stable. Minimal abdominal discomfort on examination. Paracentesis today. Hemoglobin 9.5. Sodium 130, bilirubin gradually downtrending 3.4, creatinine stable. Await paracentesis fluid evaluation for culture/count/protein/microscopy 04/10-patient demonstrating gradual improvement in mental status but remains encephalopathic major part of the day, renal function stable. Status post 2 L paracentesis. Cell count 104, Gram stain negative. Afebrile. Continue rifaximin/lactulose. 04/11-much improved mental status this morning. Able to hold a conversation. Was unable to sleep at night. Bilirubin downtrending at 2.8. Creatinine stable at 0.8. Sodium 133. Anticipate discharge in 24 hours pending clinical improvement 04/12-patient clinically improved now mentation at baseline. Stable hemodynamics and labs. Discharging advised to follow-up with GI Dr. Garcia and Dr. 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 Date of admission: 04/05/20 12:17 Discharge date: 04/12/20 Primary care physician: Wendy Reid DO Consults: 04/05/20 Consult to Physician [CONS] Stat Comment: Consulting Provider: Tanner Rodarte Reason For Exam: Physician to Consult Discharge Meds Discharge Medications Home Medications albuterol sulfate 90 mcg/actuation aerosol inhaler 2 puff INHALATION Q4-6HP PRN #6.7 g 07/29/19 [Rx Confirmed 04/05/20 Last Taken 1 Month Ago ~03/05/20] tramadol 50 mg tablet 50 mg PO QID PRN #120 tab 12/29/19 [Rx Confirmed 04/05/20 Last Taken 04/04/20 20:00] omeprazole 20 mg capsule,delayed release 20 mg PO QDAY #90 cap 01/08/20 [Rx Confirmed 04/05/20 Last Taken 04/04/20] nystatin 100,000 unit/mL oral suspension 5 ml BUCCAL BID #500 ml 01/22/20 [Rx Confirmed 04/05/20 Last Taken 04/04/20] docusate sodium 100 mg capsule 100 mg PO QDAY 01/26/20 [History Confirmed 04/05/20 Last Taken 04/04/20] cyclobenzaprine 10 mg tablet 20 mg PO HS #60 tab 03/01/20 [Rx Confirmed 04/05/20 Last Taken 04/04/20] lactulose 10 gram/15 mL oral solution 45 ml PO TID ml 03/22/20 [History Confirmed 04/05/20 Last Taken 04/04/20] Xifaxan 550 mg PO BID 04/05/20 [History Confirmed 04/05/20 Last Taken 04/04/20] potassium chloride 20 meq PO QDAY 04/05/20 [History Confirmed 04/05/20 Last Taken 04/04/20] bumetanide 1 mg PO BID #30 tab 04/12/20 [Rx Last Taken Unknown] spironolactone 50 mg PO BIDD #30 tab 04/12/20 [Rx Last Taken Unknown] COURSE Hospital Course Hospital course: . Discharge diagnosis: Hepatic encephalopathy Time Spent with Patient Time attestation: Total time spent providing and/or coordinating discharge services: EXAM Constitutional Vitals: Temp Pulse Resp BP Pulse Ox 97.9 F 95 H 20 113/79 100 04/12/20 08:00 04/12/20 08:00 04/12/20 08:00 04/12/20 08:00 04/12/20 08:00 Discharge Data Data Completed and Pending Labs on day of discharge: Labs from last 24 hours 04/12/20 04/12/20 05:15 05:15 WBC 6.3 RBC 3.32 L Hgb 9.8 L Hct 29.1 L MCV 87.7 MCH 29.5 MCHC 33.7 RDW 16.1 H Plt Count 53 L MPV 13.0 H Neut % (Auto) 75.8 Lymph % (Auto) 7.0 L Lucas % (Auto) 12.6 H Eos % (Auto) 3.8 Baso % (Auto) 0.8 Lymph # (Auto) 0.44 L Lucas # (Auto) 0.79 Eos # (Auto) 0.24 Baso # (Auto) 0.05 Absolute Neutrophils 4.77 Sodium 131 L Potassium 4.6 Chloride 99 Carbon Dioxide 23 Anion Gap 9.0 BUN 14 Creatinine 0.9 GFR Calculation 66 Glucose 64 L Uric Acid 6.9 Calcium 8.8 Phosphorus 2.5 Magnesium 1.8 Total Bilirubin 3.3 H Direct Bilirubin 1.2 H GGT 82 H AST 73 H ALT 35 Alkaline Phosphatase 255 H Lactate Dehydrogenase 287 H Total Protein 5.4 L Albumin 3.0 L Globulin 2.4 Albumin/Globulin Ratio 1.3 Triglycerides 54 Discharge Plan Patient/Caregiver Discharge Instructions Activity: increase activity as tolerated Diet: Low Sodium (2gm) Activity Restrictions/Additional Instructions: Continue diuretic at half dose Follow-up with Dr. Garcia GI/transplant hepatology in [place] for coordination of transplant Return to ER if worsening abdominal pain, confusion/bleeding or bloody emesis Prescriptions: New spironolactone 25 mg Tablet 50 mg PO BIDD Qty: 30 RF: 0 bumetanide 1 mg tablet 1 mg PO BID Qty: 30 RF: 0 Continued albuterol sulfate 90 mcg/actuation HFA aerosol inhaler 2 puff INHALATION Q4-6HP PRN (Reason: Shortness Of Breath) Qty: 6.7 RF: 2 tramadol 50 mg tablet 50 mg PO QID PRN (Reason: pain) Qty: 120 RF: 3 omeprazole 20 mg capsule,delayed release(DR/EC) 20 mg PO QDAY Qty: 90 RF: 0 nystatin 100,000 unit/mL suspension 5 ml BUCCAL BID Qty: 500 RF: 2 cyclobenzaprine 10 mg tablet 20 mg PO HS Qty: 60 RF: 1 lactulose 10 gram/15 mL solution 45 ml PO TID RF: 0 docusate sodium 100 mg capsule 100 mg PO QDAY RF: 0 potassium chloride 20 mEq Tablet,Er Particles/Crystals 20 meq PO QDAY RF: 0 Xifaxan 550 mg Tablet 550 mg PO BID RF: 0 Discontinued bumetanide 2 mg tablet 2 mg PO BID Qty: 180 RF: 3 spironolactone 100 mg tablet 100 mg PO BID Qty: 60 RF: 11 Follow Up Plan Follow up with: Wendy Reid DO [Primary Care Provider] - Patient Disposition: Home Health Service Rehab Potential: Undetermined I certify that the patient requires SNF services: No Overall status at discharge: patient is progressing back to baseline Discharge Orders: Discharge Order (Routine); Ordered 04/12/20 Ordered By: [place] SAMAYOA VTE Deep Vein Thrombosis/Pulmonary Embolism Present on Admission: No
[2020-04-12] MEDS ORDERED: FLU VACC QS2020-21(6MOS UP)/PF 60 MCG/0.5 ML SYRINGE IM ONE (13:45)
== END 2020-04-12 15:20 | disposition home health service (06) | DRG 442 ==
LOC: ED 06:52 → ICU 12:17 → MEDSUR 04-09 18:02
PROVIDERS: ADMIT Internal Medicine; ATTEND Internal Medicine